=== PATIENT | male | born 1930 | race Caucasian/White ===

== ENCOUNTER 2016-06-30 17:01 | Observation (INO) | payer MEDICARE, OTHER ==
--- NOTE | 2016-06-30 18:34 | RAD ---
INDICATION: Shortness of breath. COMPARISON: Most recent comparison chest x-ray April 28, 2016 TECHNIQUE: PA and lateral views of the chest were obtained. FINDINGS: The heart and mediastinum are normal in size and contour. The lungs are grossly clear. There is no evidence of large pleural effusion. Visualized bones are normal for the patient's age. Partially visualized are air-filled loops of small bowel to 5.1 cm in diameter. There is no radiographic evidence of free air beneath the diaphragm IMPRESSION: 1. NO RADIOGRAPHIC EVIDENCE OF ACUTE CARDIOPULMONARY DISEASE. 2. PARTIALLY VISUALIZED AIR-FILLED LOOPS OF SMALL BOWEL MEASURE UP TO 5 CM IN DIAMETER WHICH APPEARS SIMILAR TO THE PREVIOUS CHEST X-RAY.
[2016-06-30 18:48] LABS: Hematocrit 44 % (42-52); Hemoglobin 14.5 g/dl (14.0-18.0); Mean Corpuscular HGB Conc 33 g/dl (31-36); Mean Corpuscular Hemoglobin 31 pg (27-31); Mean Corpuscular Volume 93 fL (80-94); Mean Platelet Volume 9 um3 (7.4-10.4); Red Blood Count 4.77 10^6/ul (4.0-5.4); Red Cell Distribution Width 14 % (10.5-15); White Blood Count 10.9 10^3/ul (3.5-10.8)
[2016-06-30 19:05] LABS: Troponin I 0.03 ng/mL (<0.04)
[2016-06-30 19:07] LABS: Albumin 3.7 g/dL (3.2-5.2); BUN/Creatinine Ratio 25.2 (8-20); Calcium 8.6 mg/dL (8.6-10.3); EGFR African American 77.4 (>60); EGFR Non-African American 60.2 (>60); Globulin 2.9 g/dL (2-4); Potassium 3.7 mmol/L (3.5-5.0); Total Bilirubin 0.6 mg/dL (0.2-1.0); Total Protein 6.6 g/dL (6.4-8.9)
[2016-06-30] MEDS ORDERED: methylPREDNISolone SOD SUCC* 125 MG 2 ML VIAL IV ONE (20:30)
--- NOTE | 2016-06-30 20:39 | HP ---
H&P (Free Text) History and Physical: PCP: Bella Sullivan MD Pulmonology: Bella Bowman MD Neurology: Choco Mcdonough MD Date/Time of Evaluation: 06/30/20162039 CC: SOB HPI: Mr Bartholomew is an 85YO male recently diagnosed with COPD for which he follows with Bella Bowman MD pulmonology. He was placed on prednisone 10mg daily x2 weeks then 5mg daily x2 weeks which he finished yesterday. He typically uses an albuterol nebulizer TID, but did not use it today. Around 1330 to 1400 he began having increased SOB which became quite bad prompting him to present to [facility] ~1700. He feels he has phlegm to cough up, but cannot. He denies F/C, N/V , chest pain, sweats, or other issues. Evaluation is notable for an saO2 of 90% on room air only improving to 95% on 3.5L NC, otherwise stable. WBCs are 10.9k 78.2% neutrophils, otherwise reasonably normal. PMedHx Allergies Erythromycin Allergy (Verified 06/30/16 17:26) VIOLANT STOMACH ACHE HTN COPD Bnrdxna-Stybz-Euygj neuropathy RLS BPH Ambulatory Orders Amitriptyline TAB* [Elavil TAB*] 10 mg PO BEDTIME 06/30/16 Aspirin EC Low Dose* [Ecotrin EC Low Dose 81 MG*] 81 mg PO DAILY 06/30/16 Cholecalciferol [Vitamin D3 Super Strength] 2,000 unit PO DAILY 06/30/16 Gabapentin TAB(NF) [Neurontin 600 mg TAB(NF)] 600 mg PO TID 06/30/16 HYDROcodone/ACETAMIN 5-325 MG* [[place] 5-325 TAB*] 1 - 2 tab PO TID PRN MDD 6 tabs 06/30/16 Hydrochlorothiazide TAB* [Hydrodiuril TAB*] 25 mg PO DAILY 06/30/16 Pregabalin CAP(*) [Lyrica CAP(*)] 150 mg PO TID MDD 450 mg 06/30/16 Ropinirole TAB* [Requip TAB*] 0.5 mg PO QAM 06/30/16 Tamsulosin CAP* [Flomax CAP*] 0.4 mg PO DAILY 06/30/16 Zafirlukast (NF) [Accolate (NF)] 20 mg PO BID 06/30/16 rOPINIRole TAB* [Requip*] 4 mg PO BEDTIME 06/30/16 PSurgHx L 5th trigger finger release OU cataract extractions SocHx: quit smoking 1996 w/ ~25PYHX, no alcohol or recreational drugs; lives with his ; retired [employer] assistant; full code status FamHx: Mother passed of CHF. Father passed of lung CA. Sister with DM2. ROS: as above, otherwise reviewed and all were negative Constitutional: NAD, normally developed, well-nourished elderly white male vitals: Vital Signs Temp 37.2 C 06/30/16 17:45 Pulse 91 06/30/16 18:30 Resp 18 06/30/16 18:30 BP 114/68 06/30/16 18:30 Pulse Ox 94 06/30/16 18:30 Intake & Output 06/29/16 06/30/16 06/30/16 23:59 11:59 23:59 Weight 77.111 kg HEENM: atraumatic; sclera/conjunctiva: non-icteric/clear; hearing: clinically mildly decreased; oropharynx: clear, mucosa moist Neck: soft tissue: non-tender; thyroid: normal Pulmonary: diminished inspiration B with harsh rascon-expiratory rhonchi, fair to poor aeration, no accessory muscle use CV: RR/RR, normal S1S2, no carotid bruit, no jugular venous distention, 2+ B DP/ PT, no edema Abdominal: soft, non-distended, non-tender, no rebound/guarding/rigidity, normoactive bowel sounds, no hepatosplenomegaly or masses, no costovertebral angle tenderness Musculoskeletal: general: grossly intact; gait: stable Integumental: normal appearance and texture for age Psychiatric orientation: AA&O to PPS affect: calm mood: cooperative eye contact: fair content: reliable responses: timely insight: good Testing: Lab Results 06/30/16 06/30/16 06/30/16 Range/Units 18:39 18:39 18:39 WBC 10.9 H (3.5-10.8) 10^3/ul RBC 4.77 (4.0-5.4) 10^6/ul Hgb 14.5 (14.0-18.0) g/dl Hct 44 (42-52) % MCV 93 (80-94) fL MCH 31 (27-31) pg MCHC 33 (31-36) g/dl RDW 14 (10.5-15) % Plt Count 175 (150-450) 10^3/ul MPV 9 (7.4-10.4) um3 Neut % (Auto) 78.2 (38-83) % Lymph % (Auto) 17.0 L (25-47) % [place] % (Auto) 4.0 (1-9) % Eos % (Auto) 0.4 (0-6) % Baso % (Auto) 0.4 (0-2) % Absolute Neuts (auto) 8.5 H (1.5-7.7) 10^3/ul Absolute Lymphs (auto) 1.8 (1.0-4.8) 10^3/ul Absolute Monos (auto) 0.4 (0-0.8) 10^3/ul Absolute Eos (auto) 0 (0-0.6) 10^3/ul Absolute Basos (auto) 0 (0-0.2) 10^3/ul Absolute Nucleated RBC 0.01 10^3/ul Nucleated RBC % 0.1 INR (Anticoag Therapy) (0.89-1.11) Sodium 135 (133-145) mmol/L Potassium 3.7 (3.5-5.0) mmol/L Chloride 99 L (101-111) mmol/L Carbon Dioxide 30 (22-32) mmol/L Anion Gap 6 (2-11) mmol/L BUN 29 H (6-24) mg/dL Creatinine 1.15 (0.67-1.17) mg/dL Est GFR ( Amer) 77.4 (>60) Est GFR (Non-Af Amer) 60.2 (>60) BUN/Creatinine Ratio 25.2 H (8-20) Glucose 111 H (70-100) mg/dL Lactic Acid 0.7 (0.5-2.0) mmol/L Calcium 8.6 (8.6-10.3) mg/dL Total Bilirubin 0.60 (0.2-1.0) mg/dL AST 27 (13-39) U/L ALT 13 (7-52) U/L Alkaline Phosphatase 56 (34-104) U/L Troponin I 0.03 (<0.04) ng/mL B-Natriuretic Peptide ( - 100) pg/mL Total Protein 6.6 (6.4-8.9) g/dL Albumin 3.7 (3.2-5.2) g/dL Globulin 2.9 (2-4) g/dL Albumin/Globulin Ratio 1.3 (1-3) 06/30/16 06/30/16 Range/Units 18:39 18:39 WBC (3.5-10.8) 10^3/ul RBC (4.0-5.4) 10^6/ul Hgb (14.0-18.0) g/dl Hct (42-52) % MCV (80-94) fL MCH (27-31) pg MCHC (31-36) g/dl RDW (10.5-15) % Plt Count (150-450) 10^3/ul MPV (7.4-10.4) um3 Neut % (Auto) (38-83) % Lymph % (Auto) (25-47) % [place] % (Auto) (1-9) % Eos % (Auto) (0-6) % Baso % (Auto) (0-2) % Absolute Neuts (auto) (1.5-7.7) 10^3/ul Absolute Lymphs (auto) (1.0-4.8) 10^3/ul Absolute Monos (auto) (0-0.8) 10^3/ul Absolute Eos (auto) (0-0.6) 10^3/ul Absolute Basos (auto) (0-0.2) 10^3/ul Absolute Nucleated RBC 10^3/ul Nucleated RBC % INR (Anticoag Therapy) 1.07 (0.89-1.11) Sodium (133-145) mmol/L Potassium (3.5-5.0) mmol/L Chloride (101-111) mmol/L Carbon Dioxide (22-32) mmol/L Anion Gap (2-11) mmol/L BUN (6-24) mg/dL Creatinine (0.67-1.17) mg/dL Est GFR ( Amer) (>60) Est GFR (Non-Af Amer) (>60) BUN/Creatinine Ratio (8-20) Glucose (70-100) mg/dL Lactic Acid (0.5-2.0) mmol/L Calcium (8.6-10.3) mg/dL Total Bilirubin (0.2-1.0) mg/dL AST (13-39) U/L ALT (7-52) U/L Alkaline Phosphatase (34-104) U/L Troponin I (<0.04) ng/mL B-Natriuretic Peptide 162 H ( - 100) pg/mL Total Protein (6.4-8.9) g/dL Albumin (3.2-5.2) g/dL Globulin (2-4) g/dL Albumin/Globulin Ratio (1-3) ECG, personally reviewed: NSR rate 95, no ischemia CXR, personally reviewed: IMPRESSION: 1. NO RADIOGRAPHIC EVIDENCE OF ACUTE CARDIOPULMONARY DISEASE. 2. PARTIALLY VISUALIZED AIR-FILLED LOOPS OF SMALL BOWEL MEASURE UP TO 5 CM IN DIAMETER WHICH APPEARS SIMILAR TO THE PREVIOUS CHEST X-RAY. Impression: 85M presenting with COPD exacerbation DIAGNOSIS & PLAN Primary COPD exacerbation : albuterol nebs : mometasone/formoterol : tiotropium : methylprednisolone IV : incentive spirometry : guaifenesin : levofloxacin 250mg PO daily : supplemental oxygen : consider pulmonology consult in AM : supportive care Secondary HTN : heart healthy diet [id number] neuropathy : continue gabapentin & pregabalin RLS : continue ropinirole BPH : continue tamsulosin Admission Rational: observation for COPD exacerbation DVTp: heparin SQ Code Status: full HCP:
[2016-06-30] MEDS ORDERED: Amitriptyline TAB* 10 MG PO SCH (21:00)
[2016-06-30] MEDS ORDERED: rOPINIRole TAB* 4 MG PO SCH (21:00)
[2016-06-30] MEDS ORDERED: Ondansetron INJ* 2 MG/ML VIAL IV PRN (21:37)
[2016-06-30] MEDS ORDERED: traMADol TAB* 50 MG PO PRN (21:37)
[2016-06-30] MEDS ORDERED: Melatonin (NF) 3 MG TAB PO PRN (21:37)
[2016-06-30] MEDS ORDERED: Acetaminophen TAB* 325 MG PO PRN (21:37)
[2016-06-30] MEDS ORDERED: oxyCODONE TAB* 5 MG TAB PO PRN (21:37)
[2016-06-30] MEDS ORDERED: Albuterol 2.5 MG/3 ML NEB.SOL* (0.083%) INH PRN (21:37)
[2016-06-30] MEDS ORDERED: Levofloxacin TAB* 250 MG PO SCH (22:00)
--- NOTE | 2016-06-30 22:36 | ED ---
Tin Romero Erika, scribed for Deandre Cardoza MD on 06/30/16 at 1828 . Respiratory - HPI Summary HPI Summary: Patient is an 85-year-old male presenting to the ED with a CC of difficulty breathing starting at 14:00 today. Patient reports that he has had a cough since 03/30/2016, and was diagnosed with asthma by Dr. Bowman. Patient was put on 4 weeks of prednisone, which he finished yesterday - he first had 2 weeks of a 10 mg dose, then 2 weeks of a 5 mg dose. Per , patient has a nebulizer, but did not do his treatment this morning. Around 14:00 today, patient exerted himself, and became increasingly SOB and weak. Patient denies associated chest pain. He states he is improved now, but still notes some SOB worse than baseline. Patient does not use home O2. Hx CMT - followed by Dr. Mcdonough. Pt is followed by Dr. Sullivan. Patient is a former smoker who quit 40 years ago. He is retired. - History of Current Complaint Chief Complaint: EDRespiratoryDistress Stated Complaint: SOB Time Seen by Provider: 06/30/16 17:22 Hx Obtained From: Patient Onset/Duration: Gradual Onset, Lasting Hours, Still Present Timing: Constant Initial Severity: Moderate Current Severity: Mild Pain Intensity: 0 Character: Dyspnea on Exertion Aggravating Factor(s): Exertion Associated Signs and Symptoms: SOB - Allergy/Home Medications Allergies/Adverse Reactions: Allergies Allergy/AdvReac Type Severity Reaction Status Date / Time Erythromycin Allergy VIOLANT Verified 06/30/16 17:26 STOMACH ACHE Home Medications: Home Medications Amitriptyline TAB* [Elavil TAB*] 10 mg PO BEDTIME 06/30/16 [History Confirmed ] Aspirin EC Low Dose* [Ecotrin EC Low Dose 81 MG*] 81 mg PO DAILY 06/30/16 [ History Confirmed 06/30/16] Cholecalciferol [Vitamin D3 Super Strength] 2,000 unit PO DAILY 06/30/16 [ History Confirmed 06/30/16] Gabapentin TAB(NF) [Neurontin 600 mg TAB(NF)] 600 mg PO TID 06/30/16 [History Confirmed 06/30/16] HYDROcodone/ACETAMIN 5-325 MG* [[place]br[place] 5-325 TAB*] 1 - 2 tab PO TID PRN MDD 6 tabs 06/30/16 [History Confirmed 06/30/16] Hydrochlorothiazide TAB* [Hydrodiuril TAB*] 25 mg PO DAILY 06/30/16 [History Confirmed 06/30/16] Pregabalin CAP(*) [Lyrica CAP(*)] 150 mg PO TID MDD 450 mg 06/30/16 [History Confirmed 06/30/16] Ropinirole TAB* [Requip TAB*] 0.5 mg PO QAM 06/30/16 [History Confirmed 06/30/16 ] Tamsulosin CAP* [Flomax CAP*] 0.4 mg PO DAILY 06/30/16 [History Confirmed ] Zafirlukast (NF) [Accolate (NF)] 20 mg PO BID 06/30/16 [History Confirmed ] rOPINIRole TAB* [Requip*] 4 mg PO BEDTIME 06/30/16 [History Confirmed 06/30/16] PMH/Surg Hx/FS Hx/Imm Hx Cardiovascular History: Denies: Hx Hypertension, Hx Pacemaker/ICD Respiratory History: Reports: Hx Asthma Denies: Hx Chronic Obstructive Pulmonary Disease (COPD) Musculoskeletal History: Reports: Hx Scoliosis - PROBABLY Sensory History: Denies: Hx Hearing Aid Neurological History: Denies: Hx Headaches, Other Neuro Impairments/Disorders Psychiatric History: Denies: Hx Panic Disorder - Surgical History Surgery Procedure, Year, and Place: Rt KNEE - [place] - 1974 Infectious Disease History: No Infectious Disease History: Denies: Traveled Outside the [place] in Last 30 Days - Family History Known Family History: Positive: Cardiac Disease - CHF, Diabetes, Other - Lung CA - Social History Occupation: Retired Lives: With Family Hx Substance Use: No Substance Use Type: Reports: None Hx Tobacco Use: Yes Smoking Status (MU): Former Smoker Review of Systems Negative: Chest Pain Positive: Shortness Of Breath, Cough Positive: Weakness - generalized All Other Systems Reviewed And Are Negative: Yes Physical Exam Triage Information Reviewed: Yes Vital Signs On Initial Exam: Initial Vitals Temp Pulse Resp BP Pulse Ox 99.0 F 94 20 133/86 90 06/30/16 17:22 06/30/16 17:22 06/30/16 17:22 06/30/16 17:22 06/30/16 17:22 Vital Signs Reviewed: Yes Appearance: Positive: Well-Appearing, No Pain Distress Skin: Positive: Warm, Skin Color Reflects Adequate Perfusion, Dry Head/Face: Positive: Normal Head/Face Inspection Eyes: Positive: Normal ENT: Positive: Normal ENT inspection Neck: Positive: Supple, Nontender Respiratory/Lung Sounds: Positive: Decreased Breath Sounds - Very, Wheezes - Diffuse Cardiovascular: Positive: Other - Heart sounds muffled Abdomen Description: Positive: Nontender, Soft Bowel Sounds: Positive: Present Musculoskeletal: Positive: Normal Neurological: Positive: Normal Psychiatric: Positive: Affect/Mood Appropriate Diagnostics - Vital Signs Vital Signs Temp Pulse Resp BP Pulse Ox 06/30/16 17:22 99.0 F 94 20 133/86 90 - Laboratory Lab Results: Lab Results 06/30/16 06/30/16 06/30/16 Range/Units 18:39 18:39 18:39 WBC 10.9 H (3.5-10.8) 10^3/ul RBC 4.77 (4.0-5.4) 10^6/ul Hgb 14.5 (14.0-18.0) g/dl Hct 44 (42-52) % MCV 93 (80-94) fL MCH 31 (27-31) pg MCHC 33 (31-36) g/dl RDW 14 (10.5-15) % Plt Count 175 (150-450) 10^3/ul MPV 9 (7.4-10.4) um3 Neut % (Auto) 78.2 (38-83) % Lymph % (Auto) 17.0 L (25-47) % [place] % (Auto) 4.0 (1-9) % Eos % (Auto) 0.4 (0-6) % Baso % (Auto) 0.4 (0-2) % Absolute Neuts (auto) 8.5 H (1.5-7.7) 10^3/ul Absolute Lymphs (auto) 1.8 (1.0-4.8) 10^3/ul Absolute Monos (auto) 0.4 (0-0.8) 10^3/ul Absolute Eos (auto) 0 (0-0.6) 10^3/ul Absolute Basos (auto) 0 (0-0.2) 10^3/ul Absolute Nucleated RBC 0.01 10^3/ul Nucleated RBC % 0.1 INR (Anticoag Therapy) (0.89-1.11) Sodium 135 (133-145) mmol/L Potassium 3.7 (3.5-5.0) mmol/L Chloride 99 L (101-111) mmol/L Carbon Dioxide 30 (22-32) mmol/L Anion Gap 6 (2-11) mmol/L BUN 29 H (6-24) mg/dL Creatinine 1.15 (0.67-1.17) mg/dL Est GFR ( Amer) 77.4 (>60) Est GFR (Non-Af Amer) 60.2 (>60) BUN/Creatinine Ratio 25.2 H (8-20) Glucose 111 H (70-100) mg/dL Lactic Acid 0.7 (0.5-2.0) mmol/L Calcium 8.6 (8.6-10.3) mg/dL Total Bilirubin 0.60 (0.2-1.0) mg/dL AST 27 (13-39) U/L ALT 13 (7-52) U/L Alkaline Phosphatase 56 (34-104) U/L Troponin I 0.03 (<0.04) ng/mL B-Natriuretic Peptide ( - 100) pg/mL Total Protein 6.6 (6.4-8.9) g/dL Albumin 3.7 (3.2-5.2) g/dL Globulin 2.9 (2-4) g/dL Albumin/Globulin Ratio 1.3 (1-3) 06/30/16 06/30/16 Range/Units 18:39 18:39 WBC (3.5-10.8) 10^3/ul RBC (4.0-5.4) 10^6/ul Hgb (14.0-18.0) g/dl Hct (42-52) % MCV (80-94) fL MCH (27-31) pg MCHC (31-36) g/dl RDW (10.5-15) % Plt Count (150-450) 10^3/ul MPV (7.4-10.4) um3 Neut % (Auto) (38-83) % Lymph % (Auto) (25-47) % [place] % (Auto) (1-9) % Eos % (Auto) (0-6) % Baso % (Auto) (0-2) % Absolute Neuts (auto) (1.5-7.7) 10^3/ul Absolute Lymphs (auto) (1.0-4.8) 10^3/ul Absolute Monos (auto) (0-0.8) 10^3/ul Absolute Eos (auto) (0-0.6) 10^3/ul Absolute Basos (auto) (0-0.2) 10^3/ul Absolute Nucleated RBC 10^3/ul Nucleated RBC % INR (Anticoag Therapy) 1.07 (0.89-1.11) Sodium (133-145) mmol/L Potassium (3.5-5.0) mmol/L Chloride (101-111) mmol/L Carbon Dioxide (22-32) mmol/L Anion Gap (2-11) mmol/L BUN (6-24) mg/dL Creatinine (0.67-1.17) mg/dL Est GFR ( Amer) (>60) Est GFR (Non-Af Amer) (>60) BUN/Creatinine Ratio (8-20) Glucose (70-100) mg/dL Lactic Acid (0.5-2.0) mmol/L Calcium (8.6-10.3) mg/dL Total Bilirubin (0.2-1.0) mg/dL AST (13-39) U/L ALT (7-52) U/L Alkaline Phosphatase (34-104) U/L Troponin I (<0.04) ng/mL B-Natriuretic Peptide 162 H ( - 100) pg/mL Total Protein (6.4-8.9) g/dL Albumin (3.2-5.2) g/dL Globulin (2-4) g/dL Albumin/Globulin Ratio (1-3) Result Diagrams: 06/30/16 18:39 06/30/16 18:39 Lab Statement: Any lab studies that have been ordered have been reviewed, and results considered in the medical decision making process. - Radiology CXR Radiology Interpretation Completed By: Radiologist - IMPRESSION: 1. NO RADIOGRAPHIC EVIDENCE OF ACUTE CARDIOPULMONARY DISEASE. 2. PARTIALLY VISUALIZED AIR-FILLED LOOPS OF SMALL BOWEL MEASURE UP TO 5 CM IN DIAMETER WHICH APPEARS SIMILAR TO THE PREVIOUS CHEST X-RAY. - EKG 17:23 Cardiac Rate: NL - 95 bpm - borderline tachycardia EKG Rhythm: Sinus Rhythm ST Segment: Non-Specific Re-Evaluation - Re-Evaluation First Eval Re-Evaluation Time: 19:40 Comment: Discussed lab and imaging results with patient. Pt will be road tested Disposition - Course Course Of Treatment: Mr. Bartholomew drops his SPO2 with any attempt to ambulate him and will need to be admitted and allow the steroids to work. - Diagnoses Provider Diagnoses: COPD exacerbation - Physician Notifications Discussed Care Of Patient With: Dr. Awad (hospitalist) at 20:29 - agrees to admit Discharge - Discharge Plan Condition: Stable Disposition: ADMITTED TO [facility] The documentation as recorded by the Tin garrett Erika accurately reflects the service I personally performed and the decisions made by me, Deandre Cardoza MD.
[2016-06-30] MEDS: Pregabalin CAP(*) 50 MG PO SCH (23:40)
[2016-06-30] MEDS ORDERED: CMCS - Melatonin (NF) 3 MG TAB PO PRN (23:40)
[2016-06-30] MEDS: Gabapentin CAP(*) 300 MG PO SCH (23:40)
[2016-06-30] MEDS: Docusate CAP* 100 MG PO SCH (23:40)
[2016-06-30] MEDS: ZAFIRLUKAST 20 MG PO SCH (23:49)
[2016-07-01] MEDS: NS 0.9% 1000 ML* 1,000 ML IV SCH ×2 (00:05→06:59)
[2016-07-01] MEDS: Albuterol 2.5 MG/3 ML NEB.SOL* (0.083%) INH SCH ×2 (02:03→07:31)
[2016-07-01] MEDS ORDERED: NS 0.9% 500 ML BAG* 500 ML IV ONE (05:40)
[2016-07-01] MEDS ORDERED: Heparin VIAL(*) 5000 UNITS/ML VIAL (FIVE THOUSAND) SUBCUT SCH (06:00)
[2016-07-01] MEDS ORDERED: Omeprazole CAP* 20 MG PO SCH (06:00)
[2016-07-01] MEDS ORDERED: methylPREDNISolone SOD SUCC* 40 MG/ML VIAL IV SCH (09:00)
[2016-07-01] MEDS ORDERED: guaiFENesin ER TAB 600 MG PO SCH (09:00)
[2016-07-01] MEDS ORDERED: Tamsulosin CAP* 0.4 MG PO SCH (09:00)
[2016-07-01] MEDS ORDERED: Mometasone/Formoter 200/5 MDI INH SCH (09:00)
[2016-07-01] MEDS ORDERED: Hydrochlorothiazide TAB* 25 MG PO SCH (09:00)
[2016-07-01] MEDS ORDERED: Ropinirole TAB* 0.5 MG TAB PO SCH (09:00)
[2016-07-01] MEDS ORDERED: Aspirin EC Low Dose* 81 MG TAB.EC PO SCH (09:00)
[2016-07-01] MEDS ORDERED: Tiotropium CAP.INH* CAP.INH/18 MCG INH SCH (09:00)
[2016-07-01] MEDS: Docusate CAP* 100 MG PO SCH (09:26)
[2016-07-01] MEDS: Pregabalin CAP(*) 50 MG PO SCH (09:26)
[2016-07-01] MEDS: Gabapentin CAP(*) 300 MG PO SCH (09:26)
[2016-07-01] MEDS: ZAFIRLUKAST 20 MG PO SCH (09:27)
--- NOTE | 2016-07-01 11:04 | PN ---
Subjective Date of Service: 07/01/16 Interval History: Pt is feeling well. He states his breathing is very comfortable. He denies any pain. No significant cough. He has been up and walking around without any difficultly. He feels ready for d/c home. Objective Active Medications: Acetaminophen (Tylenol Tab*) 650 mg PO Q6H PRN PRN Reason: FEVER/PAIN Last Admin: 06/30/16 22:37 Dose: 650 mg Albuterol (Ventolin 2.5 Mg/3 Ml Neb.Karolyn*) 2.5 mg INH Q2H PRN PRN Reason: SOB/WHEEZING Albuterol (Ventolin 2.5 Mg/3 Ml Neb.Karolyn*) 2.5 mg INH [id number] Last Admin: 07/01/16 07:31 Dose: 2.5 mg Amitriptyline HCl (Elavil Tab*) 10 mg PO BEDTIME [facility] Last Admin: 06/30/16 23:40 Dose: 10 mg Aspirin (Aspirin Ec Low Dose*) 81 mg PO DAILY [facility] Last Admin: 07/01/16 09:26 Dose: 81 mg Docusate Sodium (Colace Cap*) 200 mg PO BID [facility] Last Admin: 07/01/16 09:26 Dose: 200 mg Gabapentin (Neurontin Cap(*)) 300 mg PO TID [facility] Last Admin: 07/01/16 09:26 Dose: 300 mg Guaifenesin (Mucinex*) 1,200 mg PO BID [facility] Last Admin: 07/01/16 09:27 Dose: 1,200 mg Heparin Sodium (Porcine) (Heparin Vial(*)) 5,000 units SUBCUT Q8HR [facility] Last Admin: 07/01/16 05:40 Dose: 5,000 units Hydrochlorothiazide (Hydrodiuril Tab*) 25 mg PO DAILY [facility] Last Admin: 07/01/16 09:26 Dose: 25 mg Levofloxacin (Levaquin Tab*) 250 mg PO Q24H [facility] Last Admin: 06/30/16 23:40 Dose: 250 mg Melatonin (Melatonin (Nf)) 3 mg PO BEDTIME PRN; Protocol PRN Reason: Sleep Last Admin: 06/30/16 23:45 Dose: 3 mg Methylprednisolone Sodium Succinate (Solu-Medrol*) 40 mg IV Q8H [facility] Last Admin: 07/01/16 09:26 Dose: 40 mg Mometasone Furoate/Formoterol Fumar (Dulera 200/5 Mdi*) 2 puff INH BID [facility] Last Admin: 07/01/16 07:31 Dose: 2 inhaler Omeprazole (Prilosec Cap*) 20 mg PO DAILY@0600 [facility] Last Admin: 07/01/16 05:39 Dose: 20 mg Ondansetron HCl (Zofran Inj*) 4 mg IV Q6H PRN PRN Reason: NAUSEA Last Admin: 06/30/16 22:37 Dose: 4 mg Oxycodone HCl (Roxycodone Tab*) 5 mg PO Q4H PRN PRN Reason: PAIN Pregabalin (Lyrica Cap(*)) 150 mg PO TID [facility] Last Admin: 07/01/16 09:26 Dose: 150 mg Ropinirole HCl (Requip Tab*) 0.5 mg PO QAM [facility] Last Admin: 07/01/16 09:27 Dose: 0.5 mg Ropinirole HCl (Requip*) 4 mg PO BEDTIME [facility] Last Admin: 06/30/16 23:40 Dose: 4 mg Tamsulosin HCl (Flomax Cap*) 0.4 mg PO DAILY [facility] Last Admin: 07/01/16 09:26 Dose: 0.4 mg Tiotropium [place] (Spiriva Cap.Inh*) 1 cap INH DAILY [facility] Last Admin: 07/01/16 08:16 Dose: 1 cap Tramadol HCl (Ultram*) 50 mg PO Q6H PRN PRN Reason: PAIN Zafirlukast (Accolate (Nf)) 20 mg PO BID [facility] PRN Reason: Protocol Last Admin: 07/01/16 09:27 Dose: Not Given Vital Signs 06/30/16 06/30/16 06/30/16 21:00 21:18 21:27 Temperature 101.5 F Pulse Rate 93 91 Respiratory 21 20 Rate Blood Pressure 104/63 (mmHg) O2 Sat by Pulse 95 96 Oximetry 06/30/16 06/30/16 06/30/16 22:30 22:31 22:35 Temperature 101.9 F 101.9 F Pulse Rate 86 86 Respiratory 18 18 18 Rate Blood Pressure 115/56 115/56 (mmHg) O2 Sat by Pulse 93 93 Oximetry 04/11/17 04/11/17 04/12/17 23:33 23:40 01:40 Temperature 98.7 F Pulse Rate Respiratory 18 18 Rate Blood Pressure (mmHg) O2 Sat by Pulse Oximetry 07/01/16 07/01/16 07/01/16 04:33 07:17 07:44 Temperature 97.3 F 97.5 F Pulse Rate 63 59 84 Respiratory 16 15 16 Rate Blood Pressure 106/60 108/59 (mmHg) O2 Sat by Pulse 92 98 Oximetry 07/01/16 09:26 Temperature Pulse Rate Respiratory 16 Rate Blood Pressure (mmHg) O2 Sat by Pulse Oximetry Oxygen Devices in Use Now: None Appearance: Elderly male lying in bed, NAD Eyes: No Scleral Icterus Ears/Nose/Mouth/Throat: Mucous Membranes Moist Respiratory: Symmetrical Chest Expansion and Respiratory Effort, Clear to Auscultation Cardiovascular: NL Sounds; No Murmurs; No JVD, RRR, No Edema Abdominal: NL Sounds; No Tenderness; No Distention Extremities: No Clubbing, Cyanosis Skin: No Rash or Ulcers, No Nodules or Sclerosis Neurological: Alert and Oriented x 3 Result Diagrams: 06/30/16 18:39 06/30/16 18:39 Additional Lab and Data: Lab Results 06/30/16 06/30/16 06/30/16 Range/Units 18:39 18:39 18:39 WBC 10.9 H (3.5-10.8) 10^3/ul RBC 4.77 (4.0-5.4) 10^6/ul Hgb 14.5 (14.0-18.0) g/dl Hct 44 (42-52) % MCV 93 (80-94) fL MCH 31 (27-31) pg MCHC 33 (31-36) g/dl RDW 14 (10.5-15) % Plt Count 175 (150-450) 10^3/ul MPV 9 (7.4-10.4) um3 Neut % (Auto) 78.2 (38-83) % Lymph % (Auto) 17.0 L (25-47) % [place] % (Auto) 4.0 (1-9) % Eos % (Auto) 0.4 (0-6) % Baso % (Auto) 0.4 (0-2) % Absolute Neuts (auto) 8.5 H (1.5-7.7) 10^3/ul Absolute Lymphs (auto) 1.8 (1.0-4.8) 10^3/ul Absolute Monos (auto) 0.4 (0-0.8) 10^3/ul Absolute Eos (auto) 0 (0-0.6) 10^3/ul Absolute Basos (auto) 0 (0-0.2) 10^3/ul Absolute Nucleated RBC 0.01 10^3/ul Nucleated RBC % 0.1 INR (Anticoag Therapy) (0.89-1.11) Sodium 135 (133-145) mmol/L Potassium 3.7 (3.5-5.0) mmol/L Chloride 99 L (101-111) mmol/L Carbon Dioxide 30 (22-32) mmol/L Anion Gap 6 (2-11) mmol/L BUN 29 H (6-24) mg/dL Creatinine 1.15 (0.67-1.17) mg/dL Est GFR ( Amer) 77.4 (>60) Est GFR (Non-Af Amer) 60.2 (>60) BUN/Creatinine Ratio 25.2 H (8-20) Glucose 111 H (70-100) mg/dL Lactic Acid 0.7 (0.5-2.0) mmol/L Calcium 8.6 (8.6-10.3) mg/dL Total Bilirubin 0.60 (0.2-1.0) mg/dL AST 27 (13-39) U/L ALT 13 (7-52) U/L Alkaline Phosphatase 56 (34-104) U/L Troponin I 0.03 (<0.04) ng/mL B-Natriuretic Peptide ( - 100) pg/mL Total Protein 6.6 (6.4-8.9) g/dL Albumin 3.7 (3.2-5.2) g/dL Globulin 2.9 (2-4) g/dL Albumin/Globulin Ratio 1.3 (1-3) 06/30/16 06/30/16 Range/Units 18:39 18:39 WBC (3.5-10.8) 10^3/ul RBC (4.0-5.4) 10^6/ul Hgb (14.0-18.0) g/dl Hct (42-52) % MCV (80-94) fL MCH (27-31) pg MCHC (31-36) g/dl RDW (10.5-15) % Plt Count (150-450) 10^3/ul MPV (7.4-10.4) um3 Neut % (Auto) (38-83) % Lymph % (Auto) (25-47) % [place] % (Auto) (1-9) % Eos % (Auto) (0-6) % Baso % (Auto) (0-2) % Absolute Neuts (auto) (1.5-7.7) 10^3/ul Absolute Lymphs (auto) (1.0-4.8) 10^3/ul Absolute Monos (auto) (0-0.8) 10^3/ul Absolute Eos (auto) (0-0.6) 10^3/ul Absolute Basos (auto) (0-0.2) 10^3/ul Absolute Nucleated RBC 10^3/ul Nucleated RBC % INR (Anticoag Therapy) 1.07 (0.89-1.11) Sodium (133-145) mmol/L Potassium (3.5-5.0) mmol/L Chloride (101-111) mmol/L Carbon Dioxide (22-32) mmol/L Anion Gap (2-11) mmol/L BUN (6-24) mg/dL Creatinine (0.67-1.17) mg/dL Est GFR ( Amer) (>60) Est GFR (Non-Af Amer) (>60) BUN/Creatinine Ratio (8-20) Glucose (70-100) mg/dL Lactic Acid (0.5-2.0) mmol/L Calcium (8.6-10.3) mg/dL Total Bilirubin (0.2-1.0) mg/dL AST (13-39) U/L ALT (7-52) U/L Alkaline Phosphatase (34-104) U/L Troponin I (<0.04) ng/mL B-Natriuretic Peptide 162 H ( - 100) pg/mL Total Protein (6.4-8.9) g/dL Albumin (3.2-5.2) g/dL Globulin (2-4) g/dL Albumin/Globulin Ratio (1-3) Assess/Plan/Problems-Billing Mr Bartholomew is an 85 yo M who has a h/o COPD, HTN and BPH who presented to the ER with c/o SOB and was admitted for a COPD exacerbation. - Patient Problems (1) COPD exacerbation Current Visit: Yes Status: Acute Code(s): J44.1 - CHRONIC OBSTRUCTIVE PULMONARY DISEASE W (ACUTE) EXACERBATION SNOMED Code(s): 359189245 Comment: The patient improved very quickly. His breath sounds are full, not tight, no wheezing. He feels much better today. He feels that he is ready for D/ C home. Will plan on continuing a course of levaquin as he did have a fever up to 101.9 last night. He has been afebrile since. Will also have the patient on 5 days of prednisone. He states he has a follow up with Dr. Bowman next week. (2) HTN (hypertension) Current Visit: Yes Status: Acute Code(s): I10 - ESSENTIAL (PRIMARY) HYPERTENSION SNOMED Code(s): 94797496 Comment: BP is under excellent control. Continue current home medication regimen. (3) BPH (benign prostatic hyperplasia) Current Visit: Yes Status: Acute Code(s): N40.0 - BENIGN PROSTATIC HYPERPLASIA WITHOUT LOWER URINRY TRACT SYMP SNOMED Code(s): 861454600 Comment: Continue flomax. (4) DVT prophylaxis Current Visit: Yes Status: Acute Code(s): GNN2447 - SNOMED Code(s): 732416324 Comment: SQ heparin (5) Full code status Current Visit: Yes Status: Acute Code(s): Z78.9 - OTHER SPECIFIED HEALTH STATUS SNOMED Code(s): 426808681
[2016-07-01 12:11] VITALS: BP 93/65
--- NOTE | 2016-07-02 01:53 | DS ---
DISCHARGE SUMMARY: DATE OF ADMISSION: 06/30/16 DATE OF DISCHARGE: 07/01/16 PRIMARY CARE PROVIDER: Pee Sullivan MD PRINCIPAL DIAGNOSIS: Chronic obstructive pulmonary disease exacerbation. SECONDARY DIAGNOSES: 1. Benign prostatic hyperplasia. 2. Hypertension. DISCHARGE MEDICATIONS: 1. Vitamin D3 2000 units p.o. daily. 2. Flomax 0.4 mg p.o. daily. 3. Accolate 20 mg p.o. b.i.d. 4. Hydrochlorothiazide 25 mg p.o. daily. 5. Aspirin 81 mg p.o. daily. 6. Amitriptyline 10 mg p.o. at bedtime. 7. ReQuip 4 mg p.o. at bedtime. 8. ReQuip 0.5 mg p.o. q.a.m. 9. [place] 5/325 mg 1 to 2 tabs p.o. t.i.d. p.r.n. pain. 10. Gabapentin 600 mg p.o. t.i.d. 11. Lyrica 150 mg p.o. t.i.d. 12. Prednisone 20 mg p.o. daily x5 days. 13. Levofloxacin 500 mg p.o. daily x6 days. 14. Albuterol 2 puffs inhaled q.4 hours p.r.n. shortness of breath. HOSPITAL COURSE: Mr. Bartholomew is an 85-year-old male with a known history of COPD who follows with Dr. Bowman and recently completed a prolonged course of prednisone therapy who presents to emergency room with complaints of progressive shortness of breath over the day of admission. The patient was admitted for presumed COPD exacerbation. He did spike a fever to 101.9 overnight. He has since been afebrile. The patient's breathing rapidly improved to the point where on day of discharge his breathing is back to baseline. He is not coughing or bringing up any sputum. The patient, at this point, was felt to be stable for discharge home. He will continue on another 5 days of prednisone 20 mg per day and 6 days of levofloxacin 500 mg p.o. daily. The patient has been instructed to be monitoring for any fever or other signs of infection and if he is to identify any of these, he will present back to the emergency room or to his primary care provider's office. FOLLOWUP CONCERNS: The patient is being discharged home today, 07/01/16. He is to follow up with Dr. Sullivan in the next 4 to 7 days. ACTIVITY LEVEL: As tolerated. DIET: Regular. CONDITION ON DISCHARGE: Stable. TIME SPENT: Thirty-five minutes was spent discharging this patient. CC: Dr. Sullivan; Dr. Bowman* [id number]/[facility] #: [id number] MTDD
== END 2016-07-01 12:10 | disposition home or self-care (01) ==
LOC: ED 17:01 → MED 20:35
PROVIDERS: ADMIT Hospitalist; ATTEND Hospitalist
DX: J44.1 Chronic obstructive pulmonary disease with (acute) exacerbation (principal); N40.0 Benign prostatic hyperplasia without lower urinary tract symptoms; I10 Essential (primary) hypertension; G25.81 Restless legs syndrome; G60.0 Hereditary motor and sensory neuropathy; Z79.899 Other long term (current) drug therapy; Z79.82 Long term (current) use of aspirin; Z88.1 Allergy status to other antibiotic agents; Z87.891 Personal history of nicotine dependence; R06.02 Shortness of breath
CPT/HCPCS: 36415; 71020; 80053; 83605; 83880; 84484; 85025; 85610; 93005; 94640; 94760; 96361; 96372; 96374; 96375; 96376; 99284; A9270-GY; G0378; J1644; J2405; J2920; J2930

== ENCOUNTER 2016-09-10 15:15 | Observation (INO) | payer MEDICARE, OTHER ==
[2016-09-10] MEDS ORDERED: methylPREDNISolone 125 MG* 2 ML VIAL IV ONE (15:41)
[2016-09-10] MEDS ORDERED: Levofloxacin 750 MG IVPREMIX(* 750 MG/150 ML BAG IVPB ONE (15:41)
[2016-09-10] MEDS: Albuterol/Ipratropium NEB.SOL* Albuterol 2.5 MG/Ipratropium 0.5 MG 3 ML INH ONE (15:54)
[2016-09-10 15:57] LABS: Hematocrit 44 % (42-52); Hemoglobin 14.1 g/dl (14.0-18.0); Mean Corpuscular HGB Conc 32 g/dl (31-36); Mean Corpuscular Hemoglobin 30 pg (27-31); Mean Corpuscular Volume 94 fL (80-94); Mean Platelet Volume 9 um3 (7.4-10.4); Red Blood Count 4.65 10^6/ul (4.0-5.4); Red Cell Distribution Width 15 % (10.5-15); White Blood Count 10.3 10^3/ul (3.5-10.8)
[2016-09-10] MEDS ORDERED: Albuterol/Ipratropium NEB.SOL* Albuterol 2.5 MG/Ipratropium 0.5 MG 3 ML ONE (15:58)
[2016-09-10] MEDS: NS 0.9% 1000 ML* 2,000 ML IV ONE ×2 (16:00→17:07)
--- NOTE | 2016-09-10 16:06 | RAD ---
INDICATION: Shortness of breath and cough. COMPARISON: Comparison is made with a prior chest x-ray study from June 30, 2010. TECHNIQUE: A portable view of the chest was obtained. FINDINGS: Cardiac and mediastinal contours appear to be within normal limits. The lungs are clear. No pleural effusion is seen. IMPRESSION: NO EVIDENCE FOR ACUTE DISEASE.
[2016-09-10 16:14] LABS: Troponin I 0.03 ng/mL (<0.04)
[2016-09-10 16:15] LABS: BUN/Creatinine Ratio 21.5 (8-20); C Reactive Protein 9.54 mg/L (< 5.00); Calcium 9.2 mg/dL (8.6-10.3); EGFR African American 84.1 (>60); EGFR Non-African American 65.4 (>60); Globulin 2.8 g/dL (2-4); Potassium 3.6 mmol/L (3.5-5.0); Total Bilirubin 0.6 mg/dL (0.2-1.0); Total Protein 6.8 g/dL (6.4-8.9)
[2016-09-10 16:30] LABS: FIO2 10
[2016-09-10 16:37] LABS: PCO2 Arterial 65 mmHg (35-45)
[2016-09-10] MEDS ORDERED: Morphine INJ* 2 MG/ML 1 ML SYRINGE IV ONE (16:55)
[2016-09-10] MEDS ORDERED: Albuterol 2.5 MG/3 ML NEB.SOL* (0.083%) INH PRN (16:56)
[2016-09-10] MEDS ORDERED: HYDROcodone/ACETAMIN 5-325 MG* 1 TAB PO PRN (16:57)
[2016-09-10] MEDS ORDERED: Morphine INJ* 2 MG/ML 1 ML SYRINGE IV PRN (17:26)
[2016-09-10] MEDS ORDERED: Enoxaparin(*) 40 MG/0.4 ML SYR SUBCUT SCH (18:00)
--- NOTE | 2016-09-10 19:01 | HP ---
CC: Dr. Pee Sullivan * HISTORY AND PHYSICAL: DATE OF ADMISSION: 09/10/16 PRIMARY CARE PHYSICIAN: Dr. Pee Sullivan. CHIEF COMPLAINT: Shortness of breath. HISTORY OF PRESENT ILLNESS: Mr. Bartholomew is an 85-year-old male with past medical history of hypertension, COPD, BPH, restless leg syndrome, Charcot-Gema -Tooth neuropathy, who presents to the hospital with shortness of breath. It sounds like the patient has chronic COPD issues and does have good days and bad days; however, this morning, when he woke up, he states that he simply could not catch his breath. He tried to use his nebulizers and his inhalers; however, he did not have any relief from this. He reports he was slightly wheezy and has had a wet cough that has been nonproductive. He occasionally has some coughing spells at night. He felt that this came on somewhat abruptly this morning. Sounds like the past few days he had been doing okay. He denies any chest pain, although sweats occasionally, mostly at night, occasionally requiring him to change his shirt. He has had good p.o. intake. No rhinorrhea. No sick contacts. He reports seeing Dr. Bowman, his typesetting machine operator/tender , about 2 weeks ago. His reports at that visit Dr. Bowman said that there was not lot more she could do for him medicationwise and that if he has any breathing issues, he should call EMS or come to the hospital. The patient states he feels that this is somewhat similar to his June admission, although perhaps worse symptomatically. PAST MEDICAL HISTORY: 1. COPD, not on home oxygen. 2. BPH. 3. Hypertension. 4. Restless legs syndrome. 5. Pmahcwi-Aibgp-Rhshn neuropathy. PAST SURGICAL HISTORY: 1. Cataract surgery. 2. Trigger finger release. 3. Right knee surgery. HOME MEDICATIONS: 1. Albuterol 2 puffs inhaled every 4 hours as needed for shortness of breath or wheezing. 2. Requip 0.5 mg in the morning, 4 mg by mouth at bedtime. 3. Zafirlukast 20 mg by mouth 2 times daily. 4. Tamsulosin 0.4 mg by mouth daily. 5. Cholecalciferol 2000 units by mouth daily. 6. Aspirin 81 mg by mouth daily. 7. Hydrochlorothiazide 25 mg by mouth daily. 8. [place] 5/325 two tablets by mouth 3 times daily as needed for pain. 9. Amitriptyline 10 mg by mouth at bedtime. 10. Lyrica 150 mg by mouth 3 times daily. 11. Gabapentin 600 mg by mouth 3 times daily. ALLERGIES: ERYTHROMYCIN, which causes severe stomach pain. FAMILY HISTORY: Significant for mother with CHF, father with lung cancer, sister with type 2 diabetes. SOCIAL HISTORY: The patient is a 25- to [id number] smoker. Quit over 20 years ago. No alcohol or illicit drug use. Formerly worked for [employer]. REVIEW OF SYSTEMS: A 12-point review of systems was negative except for that noted in the HPI. PHYSICAL EXAMINATION GENERAL: The patient is an elderly man sitting up in bed in moderate respiratory distress and also some significant restlessness. VITAL SIGNS: On admission, temperature 98.6, heart rate of 82, respiratory rate of 28, O2 saturation 93% on 10 L OxyMask, blood pressure 133/67. HEENT: Head: Normocephalic, atraumatic. Eyes: Pupils equal, round, reactive to light and accommodation. Anicteric sclerae. ENT: No cervical adenopathy. Oropharynx is clear. LUNGS: The patient has diffuse expiratory rhonchi and wheezing. No rales appreciated. CARDIOVASCULAR: Regular rate and rhythm. S1, S2 present. No murmurs, gallops , or rubs. ABDOMEN: Soft, nontender, nondistended. Bowel sounds positive. EXTREMITIES: The patient has bilateral pedal edema and chronic skin changes. NEUROLOGIC: The patient is alert and oriented x3. Very restless. LABS AND DIAGNOSTICS: White blood cell count 10.3, hematocrit of 44, platelets of 183. Sodium 138, potassium 3.6, chloride 99, carbon dioxide 33, BUN 23, creatinine 1.07, glucose of 149, lactic acid 1.4. LFTs within normal limits. Troponin 0.03. Brain natriuretic peptide of 143. CRP 9.54. ABG with a pH of 7.34, PCO2 of 65, PO2 of 119, bicarb 30. Chest x-ray personally reviewed shows no acute disease. EKG personally reviewed shows normal sinus rhythm. Some lateral T-wave flattening that is unchanged. ASSESSMENT AND PLAN: Acute hypoxic respiratory failure likely secondary to chronic obstructive pulmonary disease exacerbation in this 85-year-old male with past medical history of hypertension, chronic obstructive pulmonary disease , restless legs syndrome, benign prostatic hypertrophy, and Xhankbu-Gklrp-Nxmcw neuropathy. 1. Acute hypoxic respiratory failure: It seemed that this is likely secondary to chronic obstructive pulmonary disease exacerbation with the patient's diffuse lung findings. Received Levaquin, DuoNeb, and Solu-Medrol in the emergency department. We will continue IV Solu-Medrol, around the clock DuoNeb, and p.r.n. albuterol. We will check procalcitonin. I am going to hold on additional ABx for now. Potentially I would give azithromycin; however, the patient has an ERYTHROMYCIN ALLERGY. He is currently requiring somewhere between 5 L nasal cannula and 10 L OxyMask. I am going to give him some morphine IV to see if this helps in his shortness of breath. The patient's ABG shows compensated hypercapnia. The patient does seem to be working a bit. We will continue to monitor closely and whatever the above threshold, put the patient in the ICU for closer monitoring. The patient reports symptoms came on rather abruptly. I will check a D-dimer. If it is elevated, we will continue getting a CTA, but I suspect that the patient has chronic breathing issues that have been bad for some time. 2. Benign prostatic hypertrophy: Continue home Flomax. 3. Restless leg syndrome: Continue home ropinirole. 4. Njvimzd-Zlsen-Uwqtc neuropathy: Continue home Lyrica, gabapentin, Elavil. 5. DVT prophylaxis: Lovenox subcu. 6. Code status: The patient is a do not resuscitate with a trial of intubation that is confirmed with him and his at the bedside, and both filled out to that effect. TIME SPENT: Total time spent on this admission, 45 minutes with over half the time spent [id number] with the patient in counseling and coordinating care. [id number]/[facility] #: [id number] [facility]ENTERJackie
[2016-09-10] MEDS: Gabapentin CAP(*) 300 MG PO SCH ×2 (19:27→20:23)
[2016-09-10] MEDS: Albuterol/Ipratropium NEB.SOL* Albuterol 2.5 MG/Ipratropium 0.5 MG 3 ML INH SCH (20:11)
[2016-09-10] MEDS: Pregabalin CAP(*) 50 MG PO SCH (20:24)
--- NOTE | 2016-09-10 20:34 | ED ---
Ashli Romero Thomas, scribed for Jacky Estrada MD on 09/10/16 at 2021 . Shortness of Breath - HPI Summary HPI Summary: Pt is an 85 y/o male with a hx of COPD presenting to the ED c/o SOB that began this morning after he woke up. Sob characterized as dyspnea at rest. Additionally c/o nonproductive cough and wheezing. The pt notes that "fluid seems stuck in my chest". Pt takes Lyrica. Pt does not have a nebulizer at home. PMHx: asthma (per ) Ohftxqq-Qemcg-Iwxao disease. Patient does not have a documented PMHx of CHF. - History of Current Complaint Chief Complaint: EDShortnessOfBreath Hx Obtained From: Patient Onset/Duration: Sudden Onset - this AM, Still Present Timing: Constant Dyspnea At: Rest Associated Signs & Symptoms: Cough (Nonproductive), Wheezing - Allergy/Home Medications Allergies/Adverse Reactions: Allergies Allergy/AdvReac Type Severity Reaction Status Date / Time Erythromycin Allergy VIOLANT Verified 06/30/16 17:26 STOMACH ACHE Home Medications: Home Medications Albuterol HFA INHALER* [Ventolin HFA Inhaler*] 2 puff INH Q4H PRN 09/10/16 [ History Confirmed 09/10/16] rOPINIRole TAB* [Requip TAB*] 4 mg PO BEDTIME 09/10/16 [History Confirmed ] PMH/Surg Hx/FS Hx/Imm Hx Previously Healthy: No Cardiovascular History: Denies: Hx Congestive Heart Failure, Hx Hypertension, Hx Pacemaker/ICD Respiratory History: Reports: Hx Asthma, Hx Chronic Obstructive Pulmonary Disease (COPD) Musculoskeletal History: Reports: Hx Scoliosis - PROBABLY Sensory History: Reports: Hx Contacts or Glasses Denies: Hx Hearing Aid Opthamlomology History: Reports: Hx Contacts or Glasses Neurological History: Denies: Hx Headaches, Other Neuro Impairments/Disorders Psychiatric History: Denies: Hx Panic Disorder - Surgical History Surgery Procedure, Year, and Place: Rt KNEE - [place] - 1974 Infectious Disease History: Denies: Traveled Outside the [place] in Last 30 Days - Family History Known Family History: Positive: Cardiac Disease - CHF, Diabetes, Other - Lung CA - Social History Alcohol Use: None Hx Substance Use: No Substance Use Type: Reports: None Hx Tobacco Use: Yes Smoking Status (MU): Former Smoker Review of Systems Constitutional: Negative Eyes: Negative ENT: Negative Cardiovascular: Negative Positive: Shortness Of Breath, Cough - nonproductive, Other - POS: wheezing Gastrointestinal: Negative Genitourinary: Negative Musculoskeletal: Negative Skin: Negative Neurological: Negative Psychological: Normal All Other Systems Reviewed And Are Negative: Yes Physical Exam - Summary Physical Exam Summary: The patient is well-nourished in no acute distress and in no acute pain. The skin is warm and dry. 3 second capillary refill. Decreased skin turgor. HEENT: No rhinnorhea. The head is normocephalic and atraumatic. The pupils are equal and reactive. The conjunctivae are clear and without drainage. Nares are patent and without drainage. Mouth reveals moist mucous membranes and the throat is without erythema and exudate. The external ears are intact. The ear canals are patent and without drainage. The tympanic membranes are intact. Neck is supple with full range of motion and non-tender. There are no carotid bruits. There is no neck vein distension. Respiratory: SOB. Diminished breath sounds throughout. Diffuse wheezing and rhonchi. Chest is non-tender. Cardiovascular: Diminished heart sounds. Heart is regular rate and rhythm. There is no murmur or rub auscultated. There is no peripheral edema and pulses are symmetrical and equal. Abdomen: The abdomen is soft and non-tender. There are normal bowel sounds heard in all four quadrants and there is no organomegaly palpated. Musculoskeletal: There is some pedal edema. There is no sinosis. There is no back pain noted. Extremities are non-tender with full range of motion. There is good capillary refill. No calf tenderness elicited. Neurological: Patient is alert and oriented to person, place and time. The patient has symmetrical motor strength in all four extremities. Cranial nerves are grossly intact. Deep tendon reflexes are symmetrical and equal in all four extremities. Psychiatric: The patient has an appropriate affect and does not exhibit any anxiety or depression. Triage Information Reviewed: Yes Vital Signs On Initial Exam: Initial Vitals Temp Pulse Resp BP Pulse Ox 98.6 F 82 28 133/67 93 09/10/16 15:19 09/10/16 15:19 09/10/16 15:19 09/10/16 15:19 09/10/16 15:19 Vital Signs Reviewed: Yes Diagnostics - Vital Signs Vital Signs Temp Pulse Resp BP Pulse Ox 06/22/17 15:19 98.6 F 82 28 133/67 93 - Laboratory Lab Results: Lab Results 09/10/16 09/10/16 09/10/16 Range/Units 15:44 15:44 15:44 WBC 10.3 (3.5-10.8) 10^3/ul RBC 4.65 (4.0-5.4) 10^6/ul Hgb 14.1 (14.0-18.0) g/dl Hct 44 (42-52) % MCV 94 (80-94) fL MCH 30 (27-31) pg MCHC 32 (31-36) g/dl RDW 15 (10.5-15) % Plt Count 183 (150-450) 10^3/ul MPV 9 (7.4-10.4) um3 Neut % (Auto) 46.7 (38-83) % Lymph % (Auto) 40.8 (25-47) % [place] % (Auto) 5.2 (1-9) % Eos % (Auto) 6.8 H (0-6) % Baso % (Auto) 0.5 (0-2) % Absolute Neuts (auto) 4.8 (1.5-7.7) 10^3/ul Absolute Lymphs (auto) 4.2 (1.0-4.8) 10^3/ul Absolute Monos (auto) 0.5 (0-0.8) 10^3/ul Absolute Eos (auto) 0.7 H (0-0.6) 10^3/ul Absolute Basos (auto) 0.1 (0-0.2) 10^3/ul Absolute Nucleated RBC 0.01 10^3/ul Nucleated RBC % 0.1 D-Dimer, Quantitative (Less Than 230) ng/mL Patient Temperature ABG pH (7.35-7.45) ABG pCO2 (35-45) mmHg ABG pO2 (80-100) mmHg ABG HCO3 (19-31) mmol/L ABG O2 Saturation (95-98) % ABG Base Excess (-2.0-2.0) Respiration Rate O2 Delivery Device Ventilator Type Vent Mode FiO2 Inspiratory Time PEEP Pressure Support Pressure Control EPAP IPAP BiPAP Sodium 138 (133-145) mmol/L Potassium 3.6 (3.5-5.0) mmol/L Chloride 99 L (101-111) mmol/L Carbon Dioxide 33 H (22-32) mmol/L Anion Gap 6 (2-11) mmol/L BUN 23 (6-24) mg/dL Creatinine 1.07 (0.67-1.17) mg/dL Est GFR ( Amer) 84.1 (>60) Est GFR (Non-Af Amer) 65.4 (>60) BUN/Creatinine Ratio 21.5 H (8-20) Glucose 149 H (70-100) mg/dL Lactic Acid 1.4 (0.5-2.0) mmol/L Calcium 9.2 (8.6-10.3) mg/dL Total Bilirubin 0.60 (0.2-1.0) mg/dL AST 30 (13-39) U/L ALT 16 (7-52) U/L Alkaline Phosphatase 60 (34-104) U/L Troponin I 0.03 (<0.04) ng/mL C-Reactive Protein 9.54 H (< 5.00) mg/L B-Natriuretic Peptide ( - 100) pg/mL Total Protein 6.8 (6.4-8.9) g/dL Albumin 4.0 (3.2-5.2) g/dL Globulin 2.8 (2-4) g/dL Albumin/Globulin Ratio 1.4 (1-3) Procalcitonin (<0.6) ng/mL 09/10/16 09/10/16 09/10/16 Range/Units 15:44 15:44 15:44 WBC (3.5-10.8) 10^3/ul RBC (4.0-5.4) 10^6/ul Hgb (14.0-18.0) g/dl Hct (42-52) % MCV (80-94) fL MCH (27-31) pg MCHC (31-36) g/dl RDW (10.5-15) % Plt Count (150-450) 10^3/ul MPV (7.4-10.4) um3 Neut % (Auto) (38-83) % Lymph % (Auto) (25-47) % [place] % (Auto) (1-9) % Eos % (Auto) (0-6) % Baso % (Auto) (0-2) % Absolute Neuts (auto) (1.5-7.7) 10^3/ul Absolute Lymphs (auto) (1.0-4.8) 10^3/ul Absolute Monos (auto) (0-0.8) 10^3/ul Absolute Eos (auto) (0-0.6) 10^3/ul Absolute Basos (auto) (0-0.2) 10^3/ul Absolute Nucleated RBC 10^3/ul Nucleated RBC % D-Dimer, Quantitative 224 (Less Than 230) ng/mL Patient Temperature ABG pH (7.35-7.45) ABG pCO2 (35-45) mmHg ABG pO2 (80-100) mmHg ABG HCO3 (19-31) mmol/L ABG O2 Saturation (95-98) % ABG Base Excess (-2.0-2.0) Respiration Rate O2 Delivery Device Ventilator Type Vent Mode FiO2 Inspiratory Time PEEP Pressure Support Pressure Control EPAP IPAP BiPAP Sodium (133-145) mmol/L Potassium (3.5-5.0) mmol/L Chloride (101-111) mmol/L Carbon Dioxide (22-32) mmol/L Anion Gap (2-11) mmol/L BUN (6-24) mg/dL Creatinine (0.67-1.17) mg/dL Est GFR ( Amer) (>60) Est GFR (Non-Af Amer) (>60) BUN/Creatinine Ratio (8-20) Glucose (70-100) mg/dL Lactic Acid (0.5-2.0) mmol/L Calcium (8.6-10.3) mg/dL Total Bilirubin (0.2-1.0) mg/dL AST (13-39) U/L ALT (7-52) U/L Alkaline Phosphatase (34-104) U/L Troponin I (<0.04) ng/mL C-Reactive Protein (< 5.00) mg/L B-Natriuretic Peptide 143 H ( - 100) pg/mL Total Protein (6.4-8.9) g/dL Albumin (3.2-5.2) g/dL Globulin (2-4) g/dL Albumin/Globulin Ratio (1-3) Procalcitonin < 0.1 (<0.6) ng/mL 09/10/16 Range/Units 16:25 WBC (3.5-10.8) 10^3/ul RBC (4.0-5.4) 10^6/ul Hgb (14.0-18.0) g/dl Hct (42-52) % MCV (80-94) fL MCH (27-31) pg MCHC (31-36) g/dl RDW (10.5-15) % Plt Count (150-450) 10^3/ul MPV (7.4-10.4) um3 Neut % (Auto) (38-83) % Lymph % (Auto) (25-47) % [place] % (Auto) (1-9) % Eos % (Auto) (0-6) % Baso % (Auto) (0-2) % Absolute Neuts (auto) (1.5-7.7) 10^3/ul Absolute Lymphs (auto) (1.0-4.8) 10^3/ul Absolute Monos (auto) (0-0.8) 10^3/ul Absolute Eos (auto) (0-0.6) 10^3/ul Absolute Basos (auto) (0-0.2) 10^3/ul Absolute Nucleated RBC 10^3/ul Nucleated RBC % D-Dimer, Quantitative (Less Than 230) ng/mL Patient Temperature Not Reportable ABG pH 7.34 L (7.35-7.45) ABG pCO2 65 H (35-45) mmHg ABG pO2 119 H (80-100) mmHg ABG HCO3 30.3 (19-31) mmol/L ABG O2 Saturation 98.6 H (95-98) % ABG Base Excess 7.0 H (-2.0-2.0) Respiration Rate Not Reportable O2 Delivery Device oxymask Ventilator Type Not Reportable Vent Mode Not Reportable FiO2 10 Inspiratory Time Not Reportable PEEP Not Reportable Pressure Support Not Reportable Pressure Control Not Reportable EPAP Not Reportable IPAP Not Reportable BiPAP Not Reportable Sodium (133-145) mmol/L Potassium (3.5-5.0) mmol/L Chloride (101-111) mmol/L Carbon Dioxide (22-32) mmol/L Anion Gap (2-11) mmol/L BUN (6-24) mg/dL Creatinine (0.67-1.17) mg/dL Est GFR ( Amer) (>60) Est GFR (Non-Af Amer) (>60) BUN/Creatinine Ratio (8-20) Glucose (70-100) mg/dL Lactic Acid (0.5-2.0) mmol/L Calcium (8.6-10.3) mg/dL Total Bilirubin (0.2-1.0) mg/dL AST (13-39) U/L ALT (7-52) U/L Alkaline Phosphatase (34-104) U/L Troponin I (<0.04) ng/mL C-Reactive Protein (< 5.00) mg/L B-Natriuretic Peptide ( - 100) pg/mL Total Protein (6.4-8.9) g/dL Albumin (3.2-5.2) g/dL Globulin (2-4) g/dL Albumin/Globulin Ratio (1-3) Procalcitonin (<0.6) ng/mL Result Diagrams: 09/10/16 15:44 09/10/16 15:44 Lab Statement: Any lab studies that have been ordered have been reviewed, and results considered in the medical decision making process. - Radiology CXR Xray Interpretation: No Acute Changes - NO EVIDENCE FOR ACUTE DISEASE Radiology Interpretation Completed By: Radiologist - EKG 1531 Cardiac Rate: NL - 74 bpm EKG Rhythm: Sinus Rhythm ST Segment: Non-Specific - Non-specific ST changes EKG Interpretation: Normal axis, poor R wave progression, no STEMI Course/Dx - Course Assessment/Plan: Pt is an 85 y/o male with a Hx of COPD presenting to the ED c/ o SOB that began this morning after he woke up. Sob characterized as dyspnea at rest. Additionally c/o nonproductive cough and wheezing. The pt notes that "fluid seems stuck in my chest". Pt takes Lyrica. Pt does not have a nebulizer at home. PMHx: asthma (per ) Kjtfiii-Zifkd-Unpfu disease. Patient does not have a documented PMHx of CHF. EKG reveals no STEMI. CXR reveals no acute findings. Troponin of 0.03, CRP of 9.54, BNP of 143. Discussed care of pt with Dr. Coronel who accepts pt for admission. Pt will be admitted to hospitalist services with a Dx of COPD exacerbation and acute dyspnea. - Diagnoses Differential Diagnosis/HQI/PQRI: Positive: Bronchitis, CHF, COPD Exacerbation, Pneumonia, Pulmonary Edema Provider Diagnoses: Acute dyspnea, COPD with acute exacerbation - Physician Notifications Discussed Care of Patient With: Suad Coronel Time Discussed With Above Provider: 16:27 Instructed by Provider To: Admit As Observation - Critical Care Time Critical Care Time: 30-74 min - 30 minutes Discharge - Discharge Plan Condition: Good Disposition: ADMITTED TO [facility] The documentation as recorded by the Ashli garrett Thomas accurately reflects the service I personally performed and the decisions made by Sean york Drew, MD.
[2016-09-10] MEDS ORDERED: Amitriptyline TAB* 10 MG PO SCH (21:00)
[2016-09-10] MEDS ORDERED: rOPINIRole TAB* 1 MG PO SCH (21:00)
[2016-09-10] MEDS: methylPREDNISolone SOD 40 MG* 1 ML VIAL IV SCH (21:53)
[2016-09-11] MEDS: Albuterol/Ipratropium NEB.SOL* Albuterol 2.5 MG/Ipratropium 0.5 MG 3 ML INH SCH ×2 (01:06→07:16)
[2016-09-11] MEDS: methylPREDNISolone SOD 40 MG* 1 ML VIAL IV SCH (05:31)
[2016-09-11] MEDS ORDERED: predniSONE TAB* 20 MG PO ONE (08:06)
[2016-09-11 08:32] VITALS: BP 137/68
[2016-09-11] MEDS: Gabapentin CAP(*) 300 MG PO SCH (08:49)
[2016-09-11] MEDS: Pregabalin CAP(*) 50 MG PO SCH (08:50)
[2016-09-11] MEDS ORDERED: Ropinirole TAB* 0.5 MG TAB PO SCH (09:00)
[2016-09-11] MEDS ORDERED: Tamsulosin CAP* 0.4 MG PO SCH (09:00)
[2016-09-11] MEDS ORDERED: Montelukast Sodium TAB* 10 MG PO SCH (09:00)
[2016-09-11] MEDS ORDERED: Aspirin EC Low Dose* 81 MG TAB.EC PO SCH (09:00)
[2016-09-11] MEDS ORDERED: Hydrochlorothiazide TAB* 25 MG PO SCH (09:00)
--- NOTE | 2016-09-11 09:59 | PN ---
Progress Note - Progress Note Date of Service: 09/11/16 Note: O2 sat by me 93% on RA.
[2016-09-11] MEDS ORDERED: rOPINIRole TAB* 4 MG PO SCH (21:00)
--- NOTE | 2016-09-12 04:52 | DS ---
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 He quit smoking over 20 years ago. 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 He was wheezing on admission. Blood gas did show a pCO2 of 65 with a pH of 7.34, pO2 was 119 on sup plementary oxygen on the blood gas. Chest x-ray done in the emergency room showed no evidence of acute disease. He was wheezing and had rhonchi in the emergency room. He was given intravenous Solu-Medrol. The next morning, he was much improved. He had mild rhonchi, but no wheezing. He was quite comfort able and said he has felt much better and was no longer short of breath. At home, he has albuterol only to add to his nebulizer. This may be sufficient to use this 3 times a day and did not use any extra when he had an exacerbation. I told him that if he had an exacerbat ion, he could use the albuterol in the nebulizer every 2 hours. If this is not adequate in the futu re to avoid his returning to the hospital consideration for adding tiotropium daily or else ipratrop ium in the nebulizer would be a possible next addition to his medications. I also discussed the concomitant use of pregabalin and gabapentin. It is really hard for him to tel l which, if either was helping as he takes them on a scheduled basis. I told him to taper the gabap entin, which he now takes one half in the morning, one half at noon, and a whole at night by a half of unit per day and reduce it by a half unit every week until he is not taking it anymore. If he do es seem to get recurrent symptoms this can always be reinstituted hopefully at a lower dose. FINAL DIAGNOSES: 1. Chronic obstructive pulmonary disease exacerbation. 2. Ewrgbho-Lmztg-Dybjs disease. 3. Benign prostatic hypertrophy. 3. Restless leg syndrome. DISCHARGE MEDICATIONS: 1. Prednisone 10 mg taper from 5 to 0 over five days. 2. Tamsulosin 0.4 mg daily. 3. Accolate 20 mg b.i.d. 4. Hydrochlorothiazide 25 mg daily. 5. Aspirin 81 mg daily. 6. Amitriptyline 10 mg at bedtime. 7. Ropinirole 0.5 mg daily. 8. Hydrocodone/acetaminophen as prescribed. 9. Pregabalin 150 mg t.i.d. 10. Vitamin D3 2000 units daily. 11. Ropinirole 4 mg at bedtime. 12. Albuterol inhaler as prescribed. 13. Gabapentin. DISCHARGE INSTRUCTIONS: As above. [id number]/[facility] #: [id number]
== END 2016-09-11 11:20 | disposition home or self-care (01) ==
LOC: ED 15:15 → MED 16:32
PROVIDERS: ADMIT Internal Medicine; ATTEND Internal Medicine
DX: J44.1 Chronic obstructive pulmonary disease with (acute) exacerbation (principal); J96.01 Acute respiratory failure with hypoxia; G60.0 Hereditary motor and sensory neuropathy; N40.0 Benign prostatic hyperplasia without lower urinary tract symptoms; G25.81 Restless legs syndrome; I49.1 Atrial premature depolarization; Z79.899 Other long term (current) drug therapy; Z88.1 Allergy status to other antibiotic agents; Z87.891 Personal history of nicotine dependence
CPT/HCPCS: 36415; 36600; 71010; 80053; 82803; 83605; 83880; 84145; 84484; 85025; 85379; 86140; 87040; 93005; 94640; 94760; 96365; 96372; 96375; 96376; 99291; A9270-GY; G0378; J1650; J2270; J2920; J2930; J7512

== ENCOUNTER 2017-05-31 11:06 | Emergency (ER) | payer MEDICARE, OTHER ==
[2017-05-31 11:42] VITALS: BP 108/65
--- NOTE | 2017-05-31 11:56 | UC ---
Shoulder Pain HPI - HPI Summary HPI Summary: Pt presents with right shoulder pain s/p fall 3 weeks ago. He tells me that he was going to get in the bath tub at home and fell against the wall hitting his right shoulder. Since that time has had increasing pain and decreased ROM. He takes pain medication for neuropathy and other pain - has been taking this for his shoulder with good relief. Did not hit his head or have LOC. Denies numbness or tingling. He has an appointment with Orthopedics on 06/11, but wanted to be sure nothing was broken before that appointment. - History of Current Complaint Chief Complaint: UCUpperExtremity Stated Complaint: SHOULDER INJURY Time Seen by Provider: 05/31/17 11:56 Hx Obtained From: Patient Onset/Duration: Sudden Onset Timing: Constant Severity Initially: Moderate Severity Currently: Mild Pain Intensity: 2 Pain Scale Used: 0-10 Numeric Aggravating Factor(s): Movement, Lifting Alleviating Factor(s): Rest - Allergies/Home Medications Allergies/Adverse Reactions: Allergies Allergy/AdvReac Type Severity Reaction Status Date / Time erythromycin base Allergy See Comment Verified 05/31/17 11:34 MS Erythromycin Allergy VIOLANT Verified 05/31/17 11:34 [Erythromycin] STOMACH ACHE Home Medications: Home Medications Fluticasone/Vilanterol [Breo Ellipta 200-25 Mcg INH] 1 inh INH DAILY 05/31/17 [ History Confirmed 05/31/17] Gabapentin TAB(NF) [Neurontin 600 mg TAB(NF)] 600 mg PO TID 05/31/17 [History Confirmed 05/31/17] Zafirlukast [Accolate] 2 tab PO DAILY 05/31/17 [History Confirmed 05/31/17] PMH/Surg Hx/FS Hx/Imm Hx - Additional Past Medical History Additional PMH: BPH Cardiovascular History: Hypertension - Surgical History Surgical History: Yes Surgery Procedure, Year, and Place: Rt KNEE - [place] - 1974 - Family History Known Family History: Positive: Cardiac Disease - CHF, Diabetes, Other - Lung CA - Social History Occupation: Retired Lives: With Family Alcohol Use: None Substance Use Type: None Smoking Status (MU): Former Smoker - Immunization History Most Recent Influenza Vaccination: fall 2015 Most Recent Pneumonia Vaccination: fall 2015 Review of Systems Constitutional: Negative Skin: Negative Respiratory: Negative Cardiovascular: Negative Motor: Negative Neurovascular: Negative Musculoskeletal: Decreased ROM - Right shoulder, Other: - Right shoulder pain Neurological: Negative Psychological: Negative All Other Systems Reviewed And Are Negative: Yes Physical Exam - Summary Physical Exam Summary: GENERAL: NAD. WDWN. No pain distress. SKIN: No rashes, sores, ulcers, masses, lesions. NECK: Supple. Nontender. No lymphadenopathy. CHEST: CTAB. No r/r/w. No accessory muscle use. Breathing comfortably and in no distress. CV: RRR. Without m/r/g. Pulses intact radial and ulnar. MSK: Right shoulder: Active flexion <90deg. Passive flexion to 180 deg. Strength 3/5 compared to left. Mild TTP about right shoulder. No edema or obvious bony deformities. Unable to perform specialized testing. NEURO: Alert. Sensations intact C4-T1 right UE PSYCH: Age appropriate behavior. Triage Information Reviewed: Yes Vital Signs: Initial Vital Signs Temp 98.4 F 05/31/17 11:32 Pulse 69 05/31/17 11:32 Resp 18 05/31/17 11:32 BP 108/65 05/31/17 11:32 Pulse Ox 95 05/31/17 11:32 Shoulder Course/Dx - Course Course Of Treatment: XR: 1. Negative for fracture or dislocation. 2. Stigmata of chronic rotator cuff pathology with mild superior subluxation of the. humeral head relative to the glenoid. 3. Small inferior acromial bone spur. Advised heat and pendulum exercises. F/u with Orthopedics as already established. - Differential Dx/Diagnosis Provider Diagnoses: Right shoulder rotator cuff injury Discharge - Discharge Plan Condition: Stable Disposition: HOME Patient Education Materials: Rotator Cuff Injury (ED) Referrals: Pee Sullivan MD [Primary Care Provider] - Additional Instructions: If you develop a fever, shortness of breath, chest pain, new or worsening symptoms - please call your PCP or go to the ED. 1) Follow up with Dr. Sher as previously scheduled. 2) May take your at home pain medications as needed for pain
--- NOTE | 2017-05-31 12:53 | RAD ---
Indication: RIGHT shoulder pain post fall 2 weeks ago. Comparison: September 10, 2016 chest radiograph. Technique: Internal and external rotation AP and scapular Y views RIGHT shoulder Report: Normal acromioclavicular joint alignment. Mild superior subluxation of the humeral head relative to the glenoid favoring presence of rotator cuff pathology. Small inferior acromial bone spur. Mild osteophytic lipping at both the acromioclavicular and glenohumeral joints. Negative for fracture. Bone density appears decreased throughout. Negative for stigmata of calcific tendinopathy. Unremarkable soft tissue contours. IMPRESSION: 1. Negative for fracture or dislocation. 2. Stigmata of chronic rotator cuff pathology with mild superior subluxation of the humeral head relative to the glenoid. 3. Small inferior acromial bone spur.
== END 2017-05-31 13:19 | disposition home or self-care (01) ==
LOC: UCEAST 11:06
DX: S46.001A Unspecified injury of muscle(s) and tendon(s) of the rotator cuff of right shoulder, initial encounter (principal); W18.09XA Striking against other object with subsequent fall, initial encounter; Y93.E8 Activity, other personal hygiene; Y92.002 Bathroom of unspecified non-institutional (private) residence as the place of occurrence of the external cause; M75.91 Shoulder lesion, unspecified, right shoulder; I10 Essential (primary) hypertension; N40.0 Benign prostatic hyperplasia without lower urinary tract symptoms; Z88.1 Allergy status to other antibiotic agents; Z87.891 Personal history of nicotine dependence
CPT/HCPCS: 99212; G0463

== ENCOUNTER 2018-09-05 08:18 | Emergency (ER) | payer MEDICARE, OTHER ==
--- NOTE | 2018-09-05 09:01 | ED ---
Head Injury - HPI Summary HPI Summary: Patient is an 87-year-old male [facility] with L sided occipital head injury. Patient states he hit his head on the bedpost this morning. Denies LOC. Denies any headache, confusion, memory loss, visual changes. Patient states he is feeling at his baseline. Denies any pain to the area. There is a small 2 cm laceration to the left occipital scalp, bleeding is well controlled. Patient states he recalls the entire event, denies any memory loss during the event. - History Of Current Complaint Chief Complaint: EDHeadInjury Stated Complaint: FALL PER EMS Time Seen by Provider: 09/05/18 08:19 Hx Obtained From: Patient Mechanism Of Injury: Blunt Trauma Onset/Duration: Started Hours Ago Onset of Pain: Hours Severity Currently: None Severity Initially: Mild Pain Intensity: 0 Pain Scale Used: 0-10 Numeric Alleviating Factor(s): Rest, Ice Associated Signs And Symptoms: Other: - no LOC - Risk Factors SDH Risk Factor: Negative - Allergies/Home Medications Allergies/Adverse Reactions: Allergies Allergy/AdvReac Type Severity Reaction Status Date / Time amoxicillin [From Augmentin] Allergy Unknown Verified 03/23/18 14:01 Reaction Details clavulanic acid Allergy Unknown Verified 03/23/18 14:01 [From Augmentin] Reaction Details erythromycin base AdvReac Nausea Verified 08/04/18 13:04 PMH/Surg Hx/FS Hx/Imm Hx Previously Healthy: Yes Cardiovascular History: Denies: Hx Congestive Heart Failure, Hx Hypertension, Hx Pacemaker/ICD Respiratory History: Reports: Hx Asthma, Hx Chronic Obstructive Pulmonary Disease (COPD) Musculoskeletal History: Reports: Hx Scoliosis - PROBABLY, Other Musculoskeletal History - Charcot-Gema Tooth Feet Sensory History: Reports: Hx Contacts or Glasses Denies: Hx Hearing Aid Opthamlomology History: Reports: Hx Contacts or Glasses Neurological History: Denies: Hx Headaches, Other Neuro Impairments/Disorders Psychiatric History: Denies: Hx Panic Disorder - Surgical History Surgery Procedure, Year, and Place: Rt KNEE - [facility]ART[facility] - 1974 - Immunization History Hx Pertussis Vaccination: No Immunizations Up to Date: Yes Infectious Disease History: No Infectious Disease History: Denies: Traveled Outside the [place] in Last 30 Days - Family History Known Family History: Positive: Cardiac Disease - CHF, Diabetes, Other - Lung CA - Social History Occupation: Unemployed Lives: At [facility] Alcohol Use: None Hx Substance Use: No Substance Use Type: Reports: None Hx Tobacco Use: Yes Smoking Status (MU): Former Smoker Review of Systems Constitutional: Negative Negative: Fever, Chills, Fatigue, Skin Diaphoresis Negative: Palpitations, Chest Pain Negative: Shortness Of Breath, Cough Genitourinary: Negative Positive: no symptoms reported Negative: Arthralgia, Myalgia Skin: Negative Positive: Other - 2cm laceration posterior scalp Neurological: Negative All Other Systems Reviewed And Are Negative: Yes Physical Exam Triage Information Reviewed: Yes Vital Signs On Initial Exam: Initial Vitals Temp Pulse Resp BP Pulse Ox 97.7 F 58 18 102/68 93 09/05/18 08:28 09/05/18 08:28 09/05/18 08:28 09/05/18 08:28 09/05/18 08:28 Vital Signs Reviewed: Yes Appearance: Positive: Well-Appearing, Well-Nourished Skin: Positive: Skin Color Reflects Adequate Perfusion, Other - 2cm occipital scalp laceration Head/Face: Positive: Normal Head/Face Inspection Eyes: Positive: EOMI, Conjunctiva Clear Neck: Positive: Supple Respiratory/Lung Sounds: Positive: Clear to Auscultation, Breath Sounds Present Cardiovascular: Positive: RRR, Pulses are Symmetrical in both Upper and Lower Extremities Musculoskeletal: Positive: Strength/ROM Intact Neurological: Positive: Speech Normal Psychiatric: Positive: Affect/Mood Appropriate AVPU Assessment: Alert Diagnostics - Vital Signs Vital Signs Temp Pulse Resp BP Pulse Ox 09/05/18 08:28 97.7 F 58 18 102/68 93 - Laboratory Lab Statement: Any lab studies that have been ordered have been reviewed, and results considered in the medical decision making process. Head Injury Course/Dx Course Of Treatment: During this course of treatment, the patient is evaluated for left-sided scalp laceration. Denies any loss of consciousness. Patient states he feels well. He denies any pain. Bleeding is well controlled. Cleanse wound thoroughly. EKG obtained as EMS stated heart rate was dropping into the 40s. Patient states this is typically normal for him and he is currently on a beta robson. He denies any dizziness, headache, syncopal episodes or lethargy. Patient states he feels well. CT brain obtained which shows no intracranial abnormalities. Patient is discharged home with scalp laceration. - Diagnoses Differential Diagnosis/HQI/PQRI: Other - Scalp laceration, head injury Provider Diagnoses: Scalp laceration Discharge - Sign-Out/Discharge Documenting (check all that apply): Patient Departure Patient Received Moderate/Deep Sedation with Procedure: No - Discharge Plan Condition: Stable Disposition: HOME Patient Education Materials: Laceration (ED) Referrals: Pee Sullivan MD [Primary Care Provider] - Additional Instructions: Please use a towel x 1 day over your pillow at home You do not require sutures or leah No evidence of trauma on the CT scan - Billing Disposition and Condition Condition: STABLE Disposition: Home
--- OUTSIDE RECORDS SUMMARY | 2018-09-05 09:11 | XMS REPORT | Continuity of Care Document ---
:1930 External Reference #:[id number] Author Name Aniya Khan Care Team Providers Name Role Phone Pee Sullivan MD Primary Care Physician Unavailable Payers Date Identification Numbers Payment Provider Subscriber Policy Number: [id number] Medicare Lelia Bartholomew PayID: [id number] [address] [place] [address] Policy Number: [id number] [employer] Lelia Bartholomew Group Number: [id number] [address] PayID: [id number] [place] [address] Problems Active Problems Provider Date Idiopathic peripheral neuropathy Braden Jiménez M.D. Onset: 02/27/2013 Lumbosacral spondylosis without myelopathy Braden Jiménez M.D. Onset: 11/2012 Spinal stenosis of lumbar region Braden Jiménez M.D. Onset: 02/27/2013 Restless legs Miriam Mcdonough M.D. Onset: 08/07/2014 Cough Zakiya Bowman MD Onset: 05/18/2016 Exacerbation of asthma Zakiya Bowman MD Onset: 05/18/2016 Ex-smoker Zakiya Bowman MD Onset: 05/18/2016 Chronic obstructive pulmonary disease with Zakiya Bowman MD Onset: 2016 (acute) exacerbation Chronic obstructive lung disease Zakiya Bowman MD Onset: 08/14/2016 Hypoxemia Zakiya Bowman MD Onset: 10/05/2016 Full thickness rotator cuff tear Meet Sher MD Onset: 06/11/2017 Pneumonia Natalee Tarango MD Onset: 08/05/2018 Family History Date Family Member(s) Observation Comments General Diabetes, Insulin Dependent grandson General Diabetes, Non Insulin Dependent General Stroke General Cancer Father non contributory Mother non contributory Siblings 1 Sister had DM ; now Social History Type Date Description Comments Sex Unknown Marital Status Lives With Family Occupation Retired Cigarette Use Quit 25 Years Ago As of 2017 ETOH Use Denies alcohol use Recreational Drug Use Denies Drug Use Tobacco Use Start: Unknown Patient is a former End: Unknown smoker Tobacco Use Start: Unknown Light tobacco smoker 1/2 PPD x 20 years (10 or fewer cigarettes/day) Smoking Status Reviewed: 06/27/18 Light tobacco smoker 1/2 PPD x 20 years (10 or fewer cigarettes/day) Exercise Type/Frequency Exercises regularly As possible, exercises arms, gets in and out of wheelchair Allergies, Adverse Reactions, Alerts Active Allergies Reaction Severity Comments Date Erythromycin 2012 Augmentin 05/18/2016 Levofloxacin 06/27/2018 Azithromycin 06/27/2018 Inactive Allergies NKDA 2012 Medications Active Medications SIG Qnty Indications Ordering Date Provider Villa Forrester Inhale One puff By 60units Zakiya 100-25mcg/Inh Mouth Every Day MD Gracie 7 Aerosol Oxygen please use o2 at 1units R09.02 [facility] Mis 2l/min during MD Genie Bowman exertion, pls provide pt with portable O2 concentrator Oxygen please provide pt 1units Zakiya Misc with portable o2 MD Genie Bowman concentrator, to be used with o2 at 2L/min Oxycheck Pulse Oximeter Use as instructed 1units Zakiya Misc MD Genie Bowman Flutter use as instructed 1units Zakiya Device twice a day MD Genie Bowman Flutter use as instructed 1units R05 Zakiya Device twice a day MD Genie Bowman Vegielax 3-4 tabs po in Unknown Tablets evening 7 Hydrocodone-Acetaminophen 1-2 by mouth three 21tabs G60.9 Clif times per day as MD Jamal 6 5-325mg Tablets needed for pain Amitriptyline HCL 1 by mouth every 90tabs Clif 50mg Tablets night at bedtime MD Jamal 5 Lyrica 1 by mouth three 90caps Clif 150mg Capsules times a day..code MD Jamal 2 c Hydrochlorothiazide 1 po qd Unknown 25mg 0 Tablets Accolate 2 po qday Unknown 20mg Tablets 0 Albuterol Sulfate 1 vial via Unknown (2.5mg/3ML) nebulizer 4 times 0 0.083% Nebulizer daily as needed Aspirin Ec Lo-Dose 1 tablet daily. Unknown 81mg Tablets [address] Tamsulosin HCL 1 po qd Unknown 0.4mg Capsules 0 Vitamin D High Potency 1 tab po qd Unknown 0 2000Units Capsules Stool Softener 1 by mouth every Unknown Capsules day 0 Aspirin Ec 1 by mouth every Unknown 81mg Tablets DR day 0 History Medications Doxycycline Hyclate one tablet twice 20caps J44.1 Zakiya 07/24/2016 - daily for 10 MD Gracie 08/13/2016 100mg Capsules days. Prednisone 4 tabs day#1, 3 21units J44.1 Zakiya 07/24/2016 - 10mg (21) tabs day#2, 2 MD Gracie 08/13/2016 TBPK tabs day#3, 1 tab for 7 days, 1/2 tab for 10 days Prednisone 1 tab by mouth 14tabs R05 Zakiya 06/16/2016 - 5mg Tablets every day every MD Gracie 07/23/2016 morning for 2 weeks Prednisone 1 tablet by mouth 30tabs J45.901 Zakiya 05/18/2016 - 10mg Tablets daily MD Gracie 06/16/2016 Hydrocodone-Acetamino 1 to 2 tabs by 120tabs G60.9 Miriam Woodson 10/23/2014 - phen mouth every 4-6 Dread Mcdonough 06/27/2015 5-325mg Tablets hours prn. Ropinirole HCL take two tablets 60tabs G25.81 Clif Berry 05/08/2014 - 2mg by mouth at 06/24/2018 Tablets bedtime Ropinirole HCL 1 tab by mouth 180tabs 333.94 Miriam Woodson 03/29/2014 - 0.5mg every am; 1-2 Dread Mcdonough 05/08/2014 Tablets tabs by mouth every at bedtime Gabapentin 1 tab at night... 45tabs G60.9 Shahriar Joshi 11/16/2013 - 600mg Dread Rondon 06/24/2018 Tablets Ropinirole HCL 1 tab by mouth 30tabs 333.94 Kiya Dela Cruz 07/11/2013 - 1mg every night as Dread 05/08/2014 Tablets directed . Ropinirole HCL 4 tabs tabs by 120tabs Miriam Woodson 04/07/2013 - 0.25mg mouth every pm as Dread Mcdonough 10/20/2013 Tablets directed Amitriptyline HCL 5 tabs by mouth 150tabs Miriam Woodson 2012 - 10mg every night as Dread Mcdonough 03/29/2014 Tablets directed Cymbalta 2-3 caps by mouth 270caps Miriam Woodson 2012 - 30mg Caps DR every day as Dread Mcdonough 04/07/2013 Part directed Cymbalta 1 po qd Unknown - 60mg Caps 2012 Part Flovent HFA 2 puffs twice Unknown - 110mcg/Act daily 07/01/2017 Aerosol Hydrocodone/Acetamino one or two po 120tabs Unknown - phen every 4 - 6 hours 10/23/2014 5-500mg Tablets prn pain Cymbalta 1 po qd 30caps Unknown - 20mg Caps 02/27/2013 Part Ropinirole HCL take 1 every 60tabs Kiya Dela Cruz, - 0.5mg morning and 1 tab Dread 10/06/2017 Tablets every evening in addition to the 2mg tabs Mucinex Fast-Max DM take 20ml by Unknown - Max mouth up to four 07/01/2017 20-400mg/20ML times a day as Liquid needed for cough / congestion Medications Administered in Office Medication SIG Qnty Indications Ordering Provider Date Depomedrol 40MG RAMOS Chin 06/27/2018 Injection Vital Signs Date Vital Result Comment 06/27/2018 11:21am Height 71 inches 5'11" per pt, pt in wheelchair Weight 175.00 lb patient stated Heart Rate 68 /min BP Systolic 110 mmHg BP Diastolic 72 mmHg Respiratory Rate 14 /min Pain Level 2 BMI (Body Mass Index) 24.4 kg/m2 10/06/2017 11:05am Height 71 inches 5'11" per pt, pt in wheelchair Weight 166.00 lb Heart Rate 62 /min BP Systolic Sitting 100 mmHg BP Diastolic Sitting 62 mmHg BMI (Body Mass Index) 23.1 kg/m2 09/03/2017 11:03am Height 71 inches 5'11" per pt, pt in wheelchair Weight 172.00 lb per pt, pt in wheelchair Heart Rate 64 /min BP Systolic Sitting 112 mmHg Rue reg cuff BP Diastolic Sitting 68 mmHg Rue reg cuff Respiratory Rate 16 /min O2 % BldC Oximetry 92 % On Ra BMI (Body Mass Index) 24.0 kg/m2 07/02/2017 11:51am Weight 172.00 lb Heart Rate 62 /min BP Systolic Sitting 110 mmHg BP Diastolic Sitting 62 mmHg Respiratory Rate 17 /min 06/11/2017 10:40am Height 71 inches 5'11" Weight 159.00 lb Heart Rate 56 /min Respiratory Rate 14 /min Body Temperature 97.9 F Pain Level 9 BMI (Body Mass Index) 22.2 kg/m2 10/20/2016 11:51am Height 71 inches 5'11" Weight 159.00 lb Heart Rate 64 /min BP Systolic Sitting 108 mmHg BP Diastolic Sitting 64 mmHg Respiratory Rate 16 /min BMI (Body Mass Index) 22.2 kg/m2 10/05/2016 10:53am Height 71 inches 5'11" Heart Rate 73 /min BP Systolic 112 mmHg BP Diastolic 60 mmHg Respiratory Rate 16 /min Pain Level 0 O2 % BldC Oximetry 92 % at rest 08/14/2016 11:05am Height 71 inches 5'11" Weight 170.00 lb per patient Heart Rate 68 /min BP Systolic Sitting 122 mmHg left arm, reg cuff BP Diastolic Sitting 62 mmHg left arm, reg cuff Respiratory Rate 16 /min O2 % BldC Oximetry 90 % room air BMI (Body Mass Index) 23.7 kg/m2 07/24/2016 11:37am Height 71 inches 5'11" Weight 170.00 lb Heart Rate 69 /min BP Systolic Sitting 128 mmHg BP Diastolic Sitting 60 mmHg Respiratory Rate 22 /min O2 % BldC Oximetry 90 % BMI (Body Mass Index) 23.7 kg/m2 06/16/2016 10:20am Height 71 inches 5'11" Heart Rate 72 /min BP Systolic Sitting 124 mmHg BP Diastolic Sitting 68 mmHg Respiratory Rate 14 /min O2 % BldC Oximetry 95 % 05/18/2016 10:46am Height 71 inches 5'11" Weight 175.00 lb Heart Rate 72 /min BP Systolic Sitting 126 mmHg BP Diastolic Sitting 78 mmHg Respiratory Rate 16 /min O2 % BldC Oximetry 96 % BMI (Body Mass Index) 24.4 kg/m2 04/23/2016 11:39am Height 72 inches 6'0" Weight 175.00 lb Heart Rate 68 /min BP Systolic Sitting 116 mmHg BP Diastolic Sitting 64 mmHg Respiratory Rate 20 /min BMI (Body Mass Index) 23.7 kg/m2 06/27/2015 1:50pm Height 72 inches 6'0" Weight 170.00 lb Heart Rate 76 /min BP Systolic Sitting 112 mmHg BP Diastolic Sitting 60 mmHg Respiratory Rate 16 /min BMI (Body Mass Index) 23.1 kg/m2 02/07/2015 11:51am Height 72 inches 6'0" Weight 170.12 lb Heart Rate 60 /min BP Systolic Sitting 130 mmHg BP Diastolic Sitting 78 mmHg Respiratory Rate 16 /min BMI (Body Mass Index) 23.1 kg/m2 08/07/2014 11:25am Height 72 inches 6'0" Weight 174.00 lb Heart Rate 60 /min BP Systolic Sitting 124 mmHg BP Diastolic Sitting 74 mmHg Respiratory Rate 16 /min BMI (Body Mass Index) 23.6 kg/m2 03/29/2014 2:02pm Height 72 inches 6'0" Weight 175.00 lb Heart Rate 60 /min BP Systolic Sitting 120 mmHg BP Diastolic Sitting 66 mmHg Respiratory Rate 16 /min BMI (Body Mass Index) 23.7 kg/m2 11/16/2013 1:50pm Height 72 inches 6'0" Weight 185.00 lb Heart Rate 64 /min BP Systolic Sitting 130 mmHg BP Diastolic Sitting 78 mmHg Respiratory Rate 16 /min BMI (Body Mass Index) 25.1 kg/m2 07/11/2013 11:43am Height 72 inches 6'0" Weight 210.00 lb Heart Rate 68 /min BP Systolic Sitting 130 mmHg BP Diastolic Sitting 72 mmHg Respiratory Rate 16 /min BMI (Body Mass Index) 28.5 kg/m2 04/07/2013 1:12pm Heart Rate 76 /min BP Systolic Sitting 120 mmHg BP Diastolic Sitting 70 mmHg Respiratory Rate 16 /min 02/27/2013 12:48pm Height 72 inches 6'0" Weight 209.00 lb BP Systolic 138 mmHg BP Diastolic 82 mmHg Pain Level 0 BMI (Body Mass Index) 28.3 kg/m2 02/03/2013 9:03am Heart Rate 65 /min BP Systolic Sitting 132 mmHg BP Diastolic Sitting 68 mmHg Respiratory Rate 20 /min Results Test Date Facility Test Result H/L Range Note Laboratory test finding 07/06/2017 [facility] <pending> Ferritin <pending> Order 10/05/2016 [facility] 6 Minute [address] <pending> Laboratory test 07/25/2016 [facility] Sputum Smear SEE RESULT BELOW [address] [place] [address] [phone] Sputum Culture & 07/25/2016 [facility] Sputum Culture SEE RESULT BELOW [address] [place] [address] [phone] Sputum Culture & 07/25/2016 [facility] Sputum Culture SEE RESULT BELOW [address] [address] [phone] 1 SEE RESULT BELOW Name: LELIA BARTHOLOMEW : [address]: Zakiya Bowman MD Acct: [id number] Unit: [id number] AGE: 85 Location: [facility] Re07/25/16 SEX: M Status: REG REF SPEC: [id number] DAVE: 07/25/[address]: Zakiya Bowman MD REQ: [id number] RECD: 07/28/16 STATUS: COMP _ SOURCE: SPUTUM SPDESC: ORDERED: Sputum Smear COMMENTS: Poor sample quality; Suggest recollection Verbal to Rowena/ Office BY [id number] at 1434 on 07/28/16. Procedure Result Reported Site Sputum Smear Final 07/28/16- 1433 ML 2+ Neutrophils 4+ Epithelial Cells Mixed Morphotypes, resembling Normal Evon Reject >10 Epi/LPF suggestive of Oral Contamination * ML - MAIN LAB ([facility]) . END OF REPORT * ML=Testing performed at Main Lab DEPARTMENT OF PATHOLOGY, [address] [place] [address] Nelson Stafford M.D. Director ALFREDO # [id number] 2 SEE RESULT BELOW Name: AAKASHLELIA : [address]: Zakiya Bowman MD Acct: [id number] Unit: [id number] AGE: 85 Location: [facility] Re08/03/16 SEX: M Status: REG REF SPEC: [id number] DAVE: 08/03/16-[address] [facility] [address]: Zakiya Bowman MD REQ: [id number] RECD: 08/03/167933 STATUS: RES _ SOURCE: SPUTUM SPDESC: ORDERED: Sputum Cult/GS Procedure Result Reported Site Sputum Smear Final 08/04/16- 0813 ML 4+ Epithelial Cells 1+ Neutrophils Mixed Morphotypes, resembling Normal Evon Sputum Culture PENDING * ML - MAIN LAB ([facility]) . END OF REPORT * ML=Testing performed at Main Lab DEPARTMENT OF PATHOLOGY, [address] [place] [address] Nelson Stafford M.D. Director [facility] # [id number] 3 SEE RESULT BELOW Name: LELIA BARTHOLOMEW : [address]: Zakiya Bowman MD Acct: [id number] Unit: [id number] AGE: 85 Location: [facility] Re08/03/16 SEX: M Status: REG REF SPEC: [id number] DAVE: 08/03/16-[address] [facility] [address]: Zakiya Bowman MD REQ: [id number] RECD: 08/03/16 STATUS: COMP _ SOURCE: SPUTUM SPDESC: ORDERED: Sputum Cult/GS Procedure Result Reported Site Sputum Smear Final 08/04/16- 812 ML 4+ Epithelial Cells 1+ Neutrophils Mixed Morphotypes, resembling Normal Evon Sputum Culture Final 08/05/16- 811 ML Organism 1 NORMAL EVON Quantity 1+ * ML - MAIN LAB ([facility]) . END OF REPORT * ML=Testing performed at Main Lab DEPARTMENT OF PATHOLOGY, [address] [place] [address] Nelson Stafford M.D. Director [facility] # [id number] Procedures Date Code Description Status 08/04/2018 42634 ECHO Transthorasic Realtime 2D W Doppler & Color Flow Hosp Completed 06/27/201844469 Inject Tendon Sheath Or Ligament Aponeurosis Eg Plantar Completed Fascia 10/05/2016 58744 Pulmonary Stress Test Simple Completed 05/21/2016 85999 Diffusing Capacity Completed 05/21/2016 65969 Pulmonary Function><Bronchodil Completed Encounters Type Date Location Provider Dx Diagnosis Office Visit 08/09/2018 Hal[facility] Isabel Natalee Tarango J44.0 Chronic 10:37a Chandrikaocroslyn MD obstructive pulmon Hospitalists disease w acute lower resp infct J18.9 Pneumonia, unspecified organism J44.1 Chronic obstructive pulmonary disease w (acute) exacerbation R79.89 Other specified abnormal findings of blood chemistry Office Visit 08/08/2018 10:37a [facility] Isabel Albright J44.0 Chronic Assoc,roslyn Tarango MD obstructive Hospitalists pulmon disease w acute lower resp infct J18.9 Pneumonia, unspecified organism J44.1 Chronic obstructive pulmonary disease w (acute) exacerbation I10 Essential (primary) hypertension Office Visit 08/08/2018 12:29p [facility] Blayne S. I21.A1 Myocardial Of [facility] Christianson, DO infarction type 2 FACC J18.9 Pneumonia, unspecified organism J44.9 Chronic obstructive pulmonary disease, unspecified Office Visit 08/07/2018 10:36a [facility] Isabel Natalee J44.0 Chronic Assoc,roslyn Tarango MD obstructive Hospitalists pulmon disease w acute lower resp infct J18.9 Pneumonia, unspecified organism J44.1 Chronic obstructive pulmonary disease w (acute) exacerbation I10 Essential (primary) hypertension Office Visit 08/07/2018 12:29p [facility] Blayne S. I21.A1 Myocardial Of [facility] Christianson, DO infarction type 2 FACC J18.9 Pneumonia, unspecified organism J44.9 Chronic obstructive pulmonary disease, unspecified Office Visit 08/06/2018 10:35a Halma Isabel Florence Ha, J44.0 Chronic Assoc,roslyn RAMIREZ obstructive pulmon Hospitalists disease w acute lower resp infct J18.9 Pneumonia, unspecified organism J44.1 Chronic obstructive pulmonary disease w (acute) exacerbation I10 Essential (primary) hypertension Office Visit 08/06/2018 12:28p [facility] Blayne S. I21.A1 Myocardial Of [facility] Christianson, DO infarction type 2 FACC J18.9 Pneumonia, unspecified organism J44.9 Chronic obstructive pulmonary disease, unspecified Office Visit 08/05/2018 10:35a [facility] Isabel Natalee A41.9 Sepsis, Assoc,pc MD Emelina unspecified Hospitalists organism J44.0 Chronic obstructive pulmon disease w acute lower resp infct J18.9 Pneumonia, unspecified organism J44.1 Chronic obstructive pulmonary disease w (acute) exacerbation R79.89 Other specified abnormal findings of blood chemistry I10 Essential (primary) hypertension Office Visit 08/05/2018 12:12p [facility] Blayne S. I21.A1 Myocardial Of [facility] Christianson, DO infarction type 2 FACC J18.9 Pneumonia, unspecified organism J44.9 Chronic obstructive pulmonary disease, unspecified Office Visit 08/04/2018 11:47a [facility] Blayne S. R06.02 Shortness of Of [facility] Christianson, DO breath FACC I21.A1 Myocardial infarction type 2 J18.9 Pneumonia, unspecified organism J44.9 Chronic obstructive pulmonary disease, unspecified Office Visit 08/04/2018 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 tear/ruptr of left shoulder, not trauma M25.511 Pain in right shoulder Office Visit 10/20/2016 11:45a [facility] Neurologic Miriam Woodson G25.81 Restless legs Services Of Tasneem Mcdonough M.D. syndrome G60.9 Hereditary and idiopathic neuropathy, unspecified Office Visit 10/05/2016 10:30a Pulmonology And Zakiya J44.9 Chronic Sleep Services Of MD Gracie obstructive [facility] pulmonary disease, unspecified R09.02 Hypoxemia Office [facility] 09[facility]11[facility]2016 [facility] Acute and chronic Assoc,roslyn Rosen M.D. respiratory Hospitalists failure with hypoxia J44.1 Chronic obstructive pulmonary disease w (acute) exacerbation G25.81 Restless legs syndrome Office Visit 09/10/2016 [facility] Albert J96.21 Acute and chronic 2:25p Assoc,roslyn Ivey MD respiratory Hospitalists failure with hypoxia J44.1 Chronic obstructive pulmonary disease w (acute) exacerbation G25.81 Restless legs syndrome Office Visit 08/14/2016 11:15a Pulmonology And Zakiya J44.1 Chronic Sleep Services Of MD Gracie obstructive [facility] pulmonary disease w (acute) exacerbation G60.9 Hereditary and idiopathic neuropathy, unspecified R05 Cough Office Visit 07/24/2016 11:45a Pulmonology And Zakiya J44.1 Chronic Sleep Services Of MD Gracie obstructive [facility] pulmonary disease w (acute) exacerbation R05 Cough G60.9 Hereditary and idiopathic neuropathy, unspecified Office Visit 07/01/2016 2:09p [facility] Nya J44.1 Chronic Assoc,roslyn Dunaway D.O. obstructive Hospitalists pulmonary disease w (acute) exacerbation G60.0 Hereditary motor and sensory neuropathy G25.81 Restless legs syndrome I10 Essential (primary) hypertension Office Visit 06/30/2016 [facility] Luciano Awad J44.1 Chronic 2:08p Assoc,roslyn VANN M.D. obstructive Hospitalists pulmonary disease w (acute) exacerbation G60.0 Hereditary motor and sensory neuropathy G25.81 Restless legs syndrome I10 Essential (primary) hypertension Office Visit 06/16/2016 10:45a Pulmonology And Sleep Zakiya Bowman MD R05 Cough Services Of [facility] J44.9 Chronic obstructive pulmonary disease, unspecified G60.9 Hereditary and idiopathic neuropathy, unspecified Office Visit 05/18/2016 12:00p Pulmonology And Sleep Zakiya Bowman MD R05 Cough Services Of [facility] J45.901 Unspecified asthma with (acute) exacerbation Z87.891 Personal history of nicotine dependence Office Visit 04/23/2016 11:45a Kenton Woodson 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 idiopathic neuropathy, unspecified G25.81 Restless legs syndrome Office Visit 06/27/2015 1:45p Kenton Woodson 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 idiopathic neuropathy, unspecified G25.81 Restless legs syndrome Office Visit 02/07/2015 11:45a Kenton Woodson 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 idiopathic neuropathy, unspecified G25.81 Restless legs syndrome M62.81 Muscle weakness (generalized) Office Visit 08/07/2014 11:30a Kenton Woodson 356.9 Neuropathy Services Of Tasneem Mcdonough M.D. Peripheral Hereditary Idiopathic Unspec 333.94 Restless Leg Syndrome Office Visit 03/29/2014 1:45p Kenton Woodson 333.94 Restless Leg Services Of Tasneem Mcdonough M.D. 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 Peripheral Hereditary Idiopathic Unspec Office Visit 07/11/2013 11:15a Kenton Woodson 356.9 Neuropathy Services Of Tasneem Mcdonough M.D. Peripheral Hereditary Idiopathic Unspec 333.94 Restless Leg Syndrome 780.93 Memory Loss Office Visit 04/07/2013 1:00p Kenton Woodson 356.9 Neuropathy Services Of Tasneem Mcdonough M.D. Peripheral Hereditary Idiopathic Unspec 333.94 Restless Leg Syndrome 728.87 Muscle Weakness Generalized Office Visit 02/27/2013 1:00p Neurosurgery Braden Gonzalez 356.9 Neuropathy Services Of Tasneem Jiménez M.D. 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 Peripheral Hereditary Idiopathic Unspec Office Visit 2012 8:45a [facility] Neurologic Miriam Woodson 356.9 Neuropathy Services Of Tasneem Mcdonough M.D. Peripheral Hereditary Idiopathic Unspec Office Visit 01/28/2012 8:30a [facility] Neurologic Miriam Woodson 356.9 Neuropathy Services Of Tasneem Mcdonough M.D. Peripheral Hereditary Idiopathic Unspec 780.93 Memory Loss Office Visit 12/09/2011 [facility] Blanco [place].9 Neuropathy 8:15a Services Of Tasneem Mcdonough M.D. Peripheral Hereditary Idiopathic Unspec Office Visit 10/30/2011 Halma Blanco [place].9 Neuropathy 9:45a Services Of Tasneem Mcdonough M.D. Peripheral Hereditary Idiopathic Unspec Office Visit 01/24/2007 Neurosurgery Braden Gonzalez 721.3 Spondylosis 1:30p Services Of Tasneem Jiménez M.D. 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
--- OUTSIDE RECORDS SUMMARY | 2018-09-05 09:11 | XMS REPORT | Continuity of Care Document ---
:1930 External Reference #:[id number] Author Name Aniya Khan Care Team Providers Name Role Phone Pee Sullivan MD Primary Care Physician Unavailable Payers Date Identification Numbers Payment Provider Subscriber Policy Number: [id number] Medicare Lelia Bartholomew PayID: [id number] [address] [place] [address] Policy Number: [id number] [employer] Lelia Bartholomew Group Number: [id number] [address] PayID: [id number] [place] [address] Problems Active Problems Provider Date Idiopathic peripheral [...] Oxygen please use o2 at 1units R09.02 [facility] Mis 2l/min during MD Genie Bowman exertion, [...] Rendering Iron <pending> Ferritin <pending> Order 10/05/2016 [facility] In-House 6 Minute Walk <pending> Laboratory test 07/25/2016 [facility] Sputum Smear SEE RESULT BELOW [address] [place] [address] [phone] Sputum Culture & 07/25/2016 [facility] Sputum Culture SEE RESULT BELOW [address] [place] [address] [phone] Sputum Culture & 07/25/2016 [facility] Sputum Culture SEE RESULT BELOW [address] [place] [address] [phone] 1 SEE RESULT BELOW Name: LELIA BARTHOLOMEW : [address]: Zakiya Bowman MD Acct: [id number] Unit: [id number] AGE: 85 Location: [facility] Re07/25/16 SEX: M Status: REG REF SPEC: [id number] DAVE: 07/25/[address]: Zakiya Bowman MD REQ: [id number] RECD: 07/28/16 STATUS: COMP _ SOURCE: SPUTUM SPDESC: ORDERED: Sputum Smear COMMENTS: Poor sample quality; Suggest recollection Verbal to Rowena/ Office BY [id number] at 1434 on 07/28/16. Procedure Result Reported Site Sputum Smear Final 07/28/16- 1433 ML 2+ Neutrophils 4+ Epithelial Cells Mixed Morphotypes, resembling Normal Evon Reject >10 Epi/LPF suggestive of Oral Contamination * ML - MAIN LAB ([facility]) . END OF REPORT * ML=Testing performed at Main Lab DEPARTMENT OF PATHOLOGY, [address] [place] [address] Nelson Stafford M.D. Director ALFREDO # [id number] 2 SEE RESULT BELOW Name: AAKASHLELIA : [address]: Zakiya Bowman MD Acct: [id number] Unit: [id number] AGE: 85 Location: [facility] Re08/03/16 SEX: M Status: REG REF SPEC: [id number] DAVE: 08/03/16-[address] [facility] [address]: Zakiya Bowman MD REQ: [id number] RECD: 08/03/161203 STATUS: RES _ SOURCE: SPUTUM SPDESC: ORDERED: Sputum Cult/GS Procedure Result Reported Site Sputum Smear Final 08/04/16- 0813 ML 4+ Epithelial Cells 1+ Neutrophils Mixed Morphotypes, resembling Normal Evon Sputum Culture PENDING * ML - MAIN LAB ([facility]) . END OF REPORT * ML=Testing performed at Main Lab DEPARTMENT OF PATHOLOGY, [address] [place] [address] Nelson Stafford M.D. Director [facility] # [id number] 3 SEE RESULT BELOW Name: LELIA BARTHOLOMEW : [address]: Zakiya Bowman MD Acct: [id number] Unit: [id number] AGE: 85 Location: [facility] Re08/03/16 SEX: M Status: REG REF SPEC: [id number] DAVE: 08/03/16-[address] [facility] [address]: Zakiya Bowman MD REQ: [id number] RECD: 08/03/167 STATUS: COMP _ SOURCE: SPUTUM SPDESC: ORDERED: Sputum Cult/GS Procedure Result Reported Site Sputum Smear Final 08/04/16- 812 ML 4+ Epithelial Cells 1+ Neutrophils Mixed Morphotypes, resembling Normal Evon Sputum Culture Final 08/05/16- 811 ML Organism 1 NORMAL EVON Quantity 1+ * ML - MAIN LAB ([facility]) . END OF REPORT * ML=Testing performed at Main Lab DEPARTMENT OF PATHOLOGY, [address] [place] [address] Nelson Stafford M.D. Director [facility] # [id number] Procedures Date Code Description Status 08/04/2018 06483 ECHO Transthorasic Realtime 2D W Doppler & Color Flow Hosp Completed 06/27/201871425 Inject Tendon Sheath Or Ligament Aponeurosis Eg Plantar Completed Fascia 10/05/2016 31871 Pulmonary Stress Test Simple Completed 05/21/2016 64169 Diffusing Capacity Completed 05/21/2016 83905 Pulmonary Function><Bronchodil Completed Encounters Type Date Location Provider Dx Diagnosis Office Visit 08/09/2018 [place] [facility] Natalee Tarango J44.0 Chronic 10:37a Chandrikaocroslyn MD obstructive pulmon Hospitalists disease w acute lower resp infct J18.9 Pneumonia, unspecified organism J44.1 Chronic obstructive pulmonary disease w (acute) exacerbation R79.89 Other specified abnormal findings of blood chemistry Office Visit 08/08/2018 10:37a [place] Isabel Albright J44.0 Chronic Assoc,roslyn Tarango MD obstructive Hospitalists pulmon disease w acute lower resp infct J18.9 Pneumonia, unspecified organism J44.1 Chronic obstructive pulmonary disease w (acute) exacerbation I10 Essential (primary) hypertension Office Visit 08/08/2018 12:29p [facility] Blayne S. I21.A1 Myocardial Of [facility] [employer] Christianson, DO infarction type 2 FACC J18.9 Pneumonia, unspecified organism J44.9 Chronic obstructive pulmonary disease, unspecified Office Visit 08/07/2018 10:36a [place] Isabel Natalee J44.0 Chronic Assoc,roslyn Tarango MD obstructive Hospitalists pulmon disease w acute lower resp infct J18.9 Pneumonia, unspecified organism J44.1 Chronic obstructive pulmonary disease w (acute) exacerbation I10 Essential (primary) hypertension Office Visit 08/07/2018 12:29p [facility] Blayne S. I21.A1 Myocardial Of [facility] [employer] Christianson, DO infarction type 2 FACC J18.9 Pneumonia, unspecified organism J44.9 Chronic obstructive pulmonary disease, unspecified Office Visit 08/06/2018 10:35a [place] Isabel Florence Ha, J44.0 Chronic Assoc,roslyn RAMIREZ obstructive pulmon Hospitalists disease w acute lower resp infct J18.9 Pneumonia, unspecified organism J44.1 Chronic obstructive pulmonary disease w (acute) exacerbation I10 Essential (primary) hypertension Office Visit 08/06/2018 12:28p [facility] Blayne S. I21.A1 Myocardial Of [employer] Christianson, DO infarction type 2 FACC J18.9 Pneumonia, unspecified organism J44.9 Chronic obstructive pulmonary disease, unspecified Office Visit 08/05/2018 10:35a [place] [facility] Natalee A41.9 Sepsis, Assoc,pc MD Emelina unspecified Hospitalists organism J44.0 Chronic obstructive pulmon disease w acute lower resp infct J18.9 Pneumonia, unspecified organism J44.1 Chronic obstructive pulmonary disease w (acute) exacerbation R79.89 Other specified abnormal findings of blood chemistry I10 Essential (primary) hypertension Office Visit 08/05/2018 12:12p [facility] Blayne S. I21.A1 Myocardial Of [facility] Christianson, DO infarction type 2 FACC J18.9 Pneumonia, unspecified organism J44.9 Chronic obstructive pulmonary disease, unspecified Office Visit 08/04/2018 11:47a [facility] Blayne S. R06.02 Shortness of Of [employer] Christianson, DO breath FACC I21.A1 Myocardial infarction type 2 J18.9 Pneumonia, unspecified organism J44.9 Chronic obstructive pulmonary disease, unspecified Office Visit 08/04/2018 [facility] A41.9 Sepsis, 10:35a Assoc,pc DANETTE Nickerson [...] unspecified G25.81 Restless legs syndrome Z79.899 Other chcf (current) drug therapy Office Visit 09/03/2017 11:45a Pulmonology And Zakiya J44.9 Chronic Sleep Services Of MD Gracie obstructive [employer] pulmonary disease, unspecified R09.02 Hypoxemia Office Visit 07/02/2017 [facility] Clif 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 tear/ruptr of left shoulder, not trauma M25.511 Pain in right shoulder Office Visit 10/20/2016 11:45a [facility] Miriam Woodson G25.81 Restless legs Services Of Tasneem Mcdonough M.D. syndrome G60.9 Hereditary and idiopathic neuropathy, unspecified Office Visit 10/05/2016 10:30a Pulmonology And Zakiya J44.9 Chronic Sleep Services Of MD Gracie obstructive [employer] pulmonary disease, unspecified R09.02 Hypoxemia Office Visit 09/11/2016 2:26p [facility] J96.21 Acute and chronic Assoc,roslyn Rosen M.D. respiratory Hospitalists failure with hypoxia J44.1 Chronic obstructive pulmonary disease w (acute) exacerbation G25.81 Restless legs syndrome Office Visit 09/10/2016 [facility] Albert J96.21 Acute and chronic 2:25p Assoc,roslyn Ivey MD respiratory Hospitalists failure with hypoxia J44.1 Chronic obstructive pulmonary disease w (acute) exacerbation G25.81 Restless legs syndrome Office Visit 08/14/2016 11:15a Pulmonology And Zakiya J44.1 Chronic Sleep Services Of MD Gracie obstructive [employer] pulmonary disease w (acute) exacerbation G60.9 Hereditary and idiopathic neuropathy, unspecified R05 Cough Office Visit 07/24/2016 11:45a Pulmonology And Zakiya J44.1 Chronic Sleep Services Of MD Gracie obstructive [employer] pulmonary disease w (acute) exacerbation R05 Cough G60.9 Hereditary and idiopathic neuropathy, unspecified Office Visit 07/01/2016 2:09p [facility] Nya J44.1 Chronic Assoc,roslyn Dunaway D.O. obstructive Hospitalists pulmonary disease w (acute) exacerbation G60.0 Hereditary motor and sensory neuropathy G25.81 Restless legs syndrome I10 Essential (primary) hypertension Office Visit 06/30/2016 [facility] Luciano Awad J44.1 Chronic 2:08p Assoc,roslyn VANN M.D. obstructive Hospitalists pulmonary disease w (acute) exacerbation G60.0 Hereditary motor and sensory neuropathy G25.81 Restless legs syndrome I10 Essential (primary) hypertension Office Visit 06/16/2016 10:45a Pulmonology And Sleep Zakiya Bowman MD R05 Cough Services [address] [facility] J44.9 Chronic obstructive pulmonary disease, unspecified G60.9 Hereditary and idiopathic neuropathy, unspecified Office Visit 05/18/2016 12:00p Pulmonology And Sleep Zakiya Bowman MD R05 Cough Services [address] 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 Peripheral Hereditary Idiopathic Unspec Office Visit 10/30/2011 [place] Blanco [place].9 Neuropathy 9:45a Services Of Tasneem Mcdonough M.D. 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
[2018-09-05 10:39] VITALS: BP 112/64
== END 2018-09-05 10:38 | disposition home or self-care (01) ==
LOC: ED 08:18
DX: S01.01XA Laceration without foreign body of scalp, initial encounter (principal); W22.03XA Walked into furniture, initial encounter; Z87.891 Personal history of nicotine dependence
CPT/HCPCS: 70450; 93005; 99284